=== PATIENT | female | born 1965 | race Caucasian/White ===

== ENCOUNTER 2018-10-17 06:28 | Observation (INO) | payer OTHER, SELFPAY ==
[2018-10-17] VITALS (23 sets, daily range): BP systolic 88–126; BP diastolic 51–102; PULSE 69–108; RESP 13–21; TEMP 36.6–37.4; O2SAT 94–100; BMI 25.7
--- NOTE | 2018-10-17 | PATH_ITS ---
[facility] Accession Number: [id number] . 01 Material submitted: . APPENDIX . 02 Diagnosis: Appendix: Acute appendicitis. MRV/10/19/2018 . 02 Electronically signed: . Sunny Moreno MD, Pathologist NPI- [id number] . 01 Gross description: . Received in formalin, labeled appendix, is an intact appendix (length-4.8 cm, diameter-1.0 cm) with mattson-pink smooth shiny serosa and attached mesoappendix (up to 2.0 cm in depth). The resection margin is received stapled. A portion of the specimen is covered in mattson-white flaky friable exudate. The lumen contains brown solid-soft material. The wall is up to 0.4 cm thick. No nodules, masses or lesions are identified. The resection margin is inked black. Section code: (A1) resection margin en face and two additional serial sections; (A2) one-half of the bivalved tip. ([id number]) /MRV . 02 Pathologist provided ICD-10: K35.80 . 02 CPT . 694072 Performed at: 01 [facility] [address], [place], [place] [id number] MD Rodrigo Davis MD Phone: [phone] Performed at: 02 [facility] [address] [place], [place] [id number] MD Jelly Dailey MD Phone: [phone]
--- NOTE | 2018-10-17 06:55 | ED_ITS ---
HPI - Abdominal Pain <Maurisio Fountain DO - Last Filed: 10/17/18 07:50> General Chief Complaint: Abdominal Pain Stated Complaint: Stomach Pain lower right front passed out twice Time Seen by Provider: 10/17/18 06:30 Source: patient Mode of arrival: ambulatory Limitations: no limitations History of Present Illness HPI narrative: 53-year-old female nonsmoker without any significant medical his tito presents to the emergency department with her and a chief complaint of 2 syncopal episodes this morning in the bathroom. She was feeling well until last evening she started developing some nausea which over the course of the evening progressed to significant right lower quadrant pain. She went to the restroom and think she was getting off the toilet to grab some toilet paper and her heard a thud. He found her laying on the ground with a contusion on her forehead and the right side of her face. She denies alcohol, street drugs with the use of blood thinners. She is at her baseline mental status. She states her pain is worse with motion and improves with rest. She denies any vaginal bleeding or discharge. Related Data Home Medications Medication Instructions Recorded Confirmed ASPIRIN (Aspirin) #0 08/08/10 Allergies Allergy/AdvReac Type Severity Reaction Status Date / Time azithromycin Allergy Verified 10/17/18 06:45 [From Zithromax Z-Brayden] Review of Systems <Maurisio Fountain DO - Last Filed: 10/17/18 07:50> Constitutional Denies chills, Denies fever(s), Denies lethargy and Denies weakness Eyes Denies change in vision, Denies eye discharge, Denies irritation and Denies loss of vision ENT Ears, Nose, Mouth, and Throat: Denies change in voice, Denies neck pain and Denies sore throat Cardiovascular Denies chest pain, Reports syncope, Denies irregular heart rhythm, Denies lightheadedness, Denies palpitations, Denies dyspnea, Denies dyspnea on exertion and Denies orthopnea Respiratory Denies cough, Denies dyspnea, Denies dyspnea on exertion and Denies wheezing Gastrointestinal Gastrointestinal: Reports abdominal pain, Denies change in bowel habits, Denies diarrhea, Denies nausea and Denies vomiting Genitourinary Denies hematuria, Denies flank pain, Denies urinary incontinence and Denies urin patrizia urgency Musculoskeletal Denies neck pain Integumentary/Breasts Denies pruritus, Denies erythema, Denies rash and Denies wounds Neurologic Denies confusion, Reports syncope, Denies loss of vision and Denies weakness Psychiatric Denies anxiety, Denies confusion, Denies depression, Denies homicidal ideation and Denies suicidal ideation Endocrine Denies palpitations Hematologic/Lymphatic Denies easy bruising Allergic/Immunologic Denies wheezing PFSH <Maurisio Fountain DO - Last Filed: 10/17/18 07:50> Social History Smoking Status: Never smoker Social History Smoking Status: Never smoker Exam <Maurisio Fountain DO - Last Filed: 10/17/18 07:50> Narrative Exam Narrative: GENERAL: 53F appears younger than stated age. This is a well- nourished, well-developed patient, in mild distress. GCS 15 HEAD: Left forehead contusion EYES: Pupils equal round and reactive. Extraocular motions intact. No scleral icterus. No injection or drainage. ENT: Nose without bleeding, purulent drainage or septal hematoma. Throat without erythema, tonsillar hypertrophy or exudate. Uvula midline. Airway patent. NECK: Trachea midline. No JVD or lymphadenopathy. Supple, nontender, no men ingeal signs. CARDIOVASCULAR: Regular rate and rhythm without murmurs, gallops, or rubs. RESPIRATORY: Clear to auscultation. Breath sounds equal bilaterally. No wheezes, rales, or rhonchi. GASTROINTESTINAL: Abdomen soft, tender RLQ, nondistended. No hepato- splenomegaly, or palpable masses. No guarding. EXTREMITIES: No clubbing, cyanosis, or edema. No joint tenderness, effusion, or edema noted. BACK: Nontender without deformity or crepitance. No flank tenderness. NEURO: AOx3. SKIN: No rash or erythema. Initial Vital Signs Initial Vital Signs: Vital Signs Temperature 98.0 F 10/17/18 06:41 Pulse Rate 108 H 10/17/18 06:41 Respiratory Rate 21 10/17/18 06:41 Blood Pressure 123/102 H 10/17/18 06:41 Pulse Oximetry 100 10/17/18 06:41 <Timi Klein DO - Last Filed: 10/17/18 08:37> Initial Vital Signs Initial Vital Signs: Vital Signs Temperature 98.0 F 10/17/18 06:41 Pulse Rate 108 H 10/17/18 06:41 Respiratory Rate 21 10/17/18 06:41 Blood Pressure 123/102 H 10/17/18 06:41 Pulse Oximetry 100 10/17/18 06:41 <DO Trev Ko Last Filed: 10/17/18 08:37> GCS [place] coma scale eye opening: Spontaneous [place] coma scale verbal response: Orientated [place] coma scale motor response: Obey commands [place] coma scale total score: 15 Course <Maurisio Fountain DO - Last Filed: 10/17/18 07:50> Orders Ordered: ED Orders 10/17/18 06:44 Complete Blood Count AUTO DIFF Stat Comprehensive Metabolic Panel Stat Lipase Stat 10/17/18 06:50 EKG-12 Lead Stat 10/17/18 07:39 CT abdomen pelvis w con Stat Piperacillin/Tazobactam/Dextrose (Zosyn) 3.375 gm in 50 mls @ 100 mls/hr IV NOW ONE Stop: 10/17/18 08:45 Last Admin: 10/17/18 08:23 Dose: 100 mls/hr Discontinued Medications Sodium Chloride (Normal Saline 0.9%) 500 mls @ 1,000 mls/hr IV BOLUS ONE Stop: 10/17/18 07:19 Last Admin: 10/17/18 07:25 Dose: Not Given Sodium Chloride (Normal Saline 0.9%) 1,000 mls @ 1,000 mls/hr IV BOLUS ONE Stop: 10/17/18 08:21 Last Admin: 10/17/18 07:24 Dose: 1,000 mls/hr Vital Signs - 8 hr 10/17/18 06:41 10/17/18 08:00 Temperature 98.0 F Pulse Rate 108 H Pulse Rate [Orthostatic Lying] 97 H Pulse Rate [Orthostatic Sitting] 89 Pulse Rate [Orthostatic Standing] 94 H Respiratory Rate 21 Blood Pressure 123/102 H Blood Pressure [Orthostatic Lying] 117/61 Blood Pressure [Orthostatic Sitting] 118/52 L Blood Pressure [Orthostatic Standing] 106/55 L Pulse Oximetry 100 <DO Trev Ko Last Filed: 10/17/18 08:37> Orders Ordered: ED Orders 10/17/18 06:44 Complete Blood Count AUTO DIFF Stat Comprehensive Metabolic Panel Stat Lipase Stat 10/17/18 06:50 EKG-12 Lead Stat 10/17/18 07:39 CT abdomen pelvis w con Stat Piperacillin/Tazobactam/Dextrose (Zosyn) 3.375 gm in 50 mls @ 100 mls/hr IV NOW ONE Stop: 10/17/18 08:45 Last Admin: 10/17/18 08:23 Dose: 100 mls/hr Discontinued Medications Sodium Chloride (Normal Saline 0.9%) 500 mls @ 1,000 mls/hr IV BOLUS ONE Stop: 10/17/18 07:19 Last Admin: 10/17/18 07:25 Dose: Not Given Sodium Chloride (Normal Saline 0.9%) 1,000 mls @ 1,000 mls/hr IV BOLUS ONE Stop: 10/17/18 08:21 Last Admin: 10/17/18 07:24 Dose: 1,000 mls/hr Vital Signs - 8 hr 10/17/18 06:41 10/17/18 08:00 Temperature 98.0 F Pulse Rate 108 H Pulse Rate [Orthostatic Lying] 97 H Pulse Rate [Orthostatic Sitting] 89 Pulse Rate [Orthostatic Standing] 94 H Respiratory Rate 21 Blood Pressure 123/102 H Blood Pressure [Orthostatic Lying] 117/61 Blood Pressure [Orthostatic Sitting] 118/52 L Blood Pressure [Orthostatic Standing] 106/55 L Pulse Oximetry 100 MDM - Abdominal Pain <Maurisio Fountain DO - Last Filed: 10/17/18 07:50> Lab Data Result diagrams: 10/17/18 06:44 10/17/18 06:44 Lab Results 10/17/18 10/17/18 Range/Units 06:44 06:44 WBC 17.4 H (4.5-11.0) X10^3/uL RBC 4.71 (4.0-5.2) X10^6/uL Hgb 14.2 (12.0-16.0) g/dL Hct 43.7 (36-46) % MCV 92.7 (80-100) fL MCH 30.1 (26-34) PG MCHC 32.5 (30-36) % RDW 12.6 (11.6-14.8) % Plt Count 312 (150-400) X10^3/uL Neut % (Auto) 86.2 H (50-75) % Lymph % (Auto) 7.0 L (25-40) % Wil[place] % (Auto) 6.4 (3-14) % Eos % (Auto) 0.2 L (2-4) % Baso % (Auto) 0.2 (0-2) % Neut # (Auto) 06262 H (5002-4872) /uL Lymph # (Auto) 1200 (1312-1330) /uL [place] # (Auto) 1100 H (0-900) /uL Eos # (Auto) 0 (0-450) /uL Baso # (Auto) 0 (0-100) /uL Sodium 137 (137-145) mmol/L Potassium 4.3 (3.4-5.1) mmol/L Chloride 100 (98-107) mmol/L Carbon Dioxide 24 (22-32) mmol/L BUN 18 H (7-17) mg/dL Creatinine 1.00 (0.52-1.04) mg/dL Estimated GFR 57.8 L (>60) mL/min BUN/Creatinine Ratio 18.0 (6-22) Glucose 80 (70-100) mg/dL Calcium 10.2 (8.4-10.2) mg/dL Total Bilirubin 0.8 (0.2-1.3) mg/dL AST 38 H (14-36) IU/L ALT 45 (9-52) IU/L Alkaline Phosphatase 73 (38-126) U/L Total Protein 8.4 H (6.3-8.2) g/dL Albumin 5.0 (3.5-5.0) g/dL Globulin 3.4 (1.7-4.1) g/dL Albumin/Globulin Ratio 1.5 (1.0-2.8) Lipase 101 (23-300) U/L <Timi Klein, DO - Last Filed: 10/17/18 08:37> Lab Data Attestation: I reviewed the patient's lab results. Lab Results 10/17/18 10/17/18 Range/Units 06:44 06:44 WBC 17.4 H (4.5-11.0) X10^3/uL RBC 4.71 (4.0-5.2) X10^6/uL Hgb 14.2 (12.0-16.0) g/dL Hct 43.7 (36-46) % MCV 92.7 (80-100) fL MCH 30.1 (26-34) PG MCHC 32.5 (30-36) % RDW 12.6 (11.6-14.8) % Plt Count 312 (150-400) X10^3/uL Neut % (Auto) 86.2 H (50-75) % Lymph % (Auto) 7.0 L (25-40) % [place] % (Auto) 6.4 (3-14) % Eos % (Auto) 0.2 L (2-4) % Baso % (Auto) 0.2 (0-2) % Neut # (Auto) 05212 H (1943-4325) /uL Lymph # (Auto) 1200 (9524-5855) /uL [place] # (Auto) 1100 H (0-900) /uL Eos # (Auto) 0 (0-450) /uL Baso # (Auto) 0 (0-100) /uL Sodium 137 (137-145) mmol/L Potassium 4.3 (3.4-5.1) mmol/L Chloride 100 (98-107) mmol/L Carbon Dioxide 24 (22-32) mmol/L BUN 18 H (7-17) mg/dL Creatinine 1.00 (0.52-1.04) mg/dL Estimated GFR 57.8 L (>60) mL/min BUN/Creatinine Ratio 18.0 (6-22) Glucose 80 (70-100) mg/dL Calcium 10.2 (8.4-10.2) mg/dL Total Bilirubin 0.8 (0.2-1.3) mg/dL AST 38 H (14-36) IU/L ALT 45 (9-52) IU/L Alkaline Phosphatase 73 (38-126) U/L Total Protein 8.4 H (6.3-8.2) g/dL Albumin 5.0 (3.5-5.0) g/dL Globulin 3.4 (1.7-4.1) g/dL Albumin/Globulin Ratio 1.5 (1.0-2.8) Lipase 101 (23-300) U/L Imaging Data CT scan - abdomen: Radiologist's impression: [address] [address] [address] Scan Report Signed Patient: Susanna Christopher [facility]#: [id number] : 1965Acct:[id number] Age/Sex: 53 / FDate of Service: 10/17/18 Loc: ED Accession Number: [id number] Procedure: CT abdomen pelvis w con Ordering Provider: Timi Klein D.O. PROCEDURE: CT ABDOMEN PELVIS W CON INDICATIONS: Right-sided abdominal pain TECHNIQUE: After the administration of intravenous contrast, 5 mm thick sections acquired from the diaphragm to the symphysis. 5 mm coronal and sagittal reformats were acquired. For radiation dose reduction, the following was used: automated exposure control, adjustment of mA and/or kV according to patient size. COMPARISON: None. FINDINGS: Image quality: Excellent. ABDOMEN: Lung bases: Lung bases are clear. Heart size is normal. There is a small hiat al hernia. Solid organs: Liver is normal in size and enhancement. Gallbladder is normal. Biliary system is non dilated. Pancreas enhances normally. Spleen is normal in size and enhancement. No adrenal nodules. Kidneys demonstrate normal size and enhancement, without hydronephrosis. Peritoneum and bowel: Appendix is enlarged measuring 17 mm in diameter. There is mild appendiceal wall thickening and increased enhancement. Mild appendiceal fat stranding is present. The CT findings are consistent with acute appendicitis. There is a trace amount of free fluid in the right paracolic gutter. No organized collections to suggest appendiceal abscess. No free air. There are numerous colonic diverticula in sigmoid colon. Nodes and vessels: No retroperitoneal or mesenteric adenopathy by size criteria. Aorta and inferior vena cava are normal in size. Miscellaneous: No ventral hernias. There is a 1.5 x 2.2 cm superficial soft tissue nodule in the upper anterior abdominal wall just right of the midline, most likely a sebaceous cyst. PELVIS: Genitourinary: Bladder wall thickness is normal. Uterus and ovaries unremarkable. No pathological fluid in the cul-de-sac. Miscellaneous: No inguinal hernias or adenopathy. Bones: No suspicious bony lesions. No vertebral body compression fractures. IMPRESSION: 1. The CT findings are consistent with acute appendicitis. No evidence for appendiceal perforation or abscess. 2. Diverticulosis without acute diverticulitis. 3. Small hiatal hernia. 4. A 1.5 x 2.2 cm superficial soft tissue nodule in the upper anterior abdominal wall just right of the midline is most likely a sebaceous cyst. If clinically indicated, ultrasound may be performed for further evaluation. The result was discussed to Dr. Klein on 10/17/2017 at 0803 hours Dictated by: Candelaria Rodriguez M.D. on 10/17/2018 at 7:55 Approved by: Candelaria Rodriguez M.D. on 10/17/2018 at 8:06 MDM Narrative Medical decision making narrative: 1925 received turned over from Dr. Fountain who initially evaluated the patient. I performed my own independent history and physical exam. Reviewed the patient's lab report. On my report patient complains of right lower quadrant abdominal pain. She states that her symptoms started last evening with just not feeling very well. Sounds like she did have a syncopal episode this morning after standing from urinating. She has not vomited but has had quite a bit of nausea. Patient is concerned because she has a ?family history ?of aneurysms. Appears to be abdominal aortic aneurysms. She has never been evaluated for these. Her EKG is unremarkable. She does have an elevated white blood cell count with a left shift. This could potentially be from an infection verses stress response/demargination. She does have bruising on her face. Low suspicion for facial bone fractures after my exam. Patient currently is alert and oriented x3 and has a GCS of 15. Is neurologically intact. Patient does not meet any criteria from the [place] syncope Rule. Will obtain a CT scan of the abdomen pelvis to evaluate for intra-abdominal pathology. Patient is given fluids. Will continue to evaluate. CT scan shows evidence for acute appendicitis. This does explain her abdominal pain and also her elevated white blood cell count. I do not feel the patient needs a CT scan of her head. I did discuss the diagnosis with the patient and the family at bedside. Dr. Alva with General surgery was informed and will come see the patient here in the emergency department. Discharge Plan Departure Patient Disposition: Admitted as Observation Clinical Impression: Acute appendicitis Qualifiers: Acute appendicitis type: unspecified acute appendicitis type Qualified Code(s): K35.80 - Unspecified acute appendicitis Syncope Qualifiers: Syncope type: unspecified Qualified Code(s): R55 - Syncope and collapse
[2018-10-17 06:57] LABS: Add Manual Diff / Slide Review NO; Basophils Absolute Auto 0 /uL (0-100); Basophils Percent Auto 0.2 % (0-2); Eosinophils Absolute Auto 0 /uL (0-450); Eosinophils Percent Auto 0.2 % (2-4); Hematocrit 43.7 % (36-46); Hemoglobin 14.2 g/dL (12.0-16.0); Lymphocytes Absolute Auto 1200 /uL (1100-4500); Mean Corpuscular HGB Conc 32.5 % (30-36); Mean Corpuscular Hemoglobin 30.1 PG (26-34); Mean Corpuscular Volume 92.7 fL (80-100); Monocytes Absolute Auto 1100 /uL (0-900); Monocytes Percent Auto 6.4 % (3-14); Neutrophils Absolute Auto 15000 /uL (1500-7000); Neutrophils Percent Auto 86.2 % (50-75); Platelet Count 312 X10^3/uL (150-400); Red Blood Cell Count 4.71 X10^6/uL (4.0-5.2); Red Cell Distribution Width 12.6 % (11.6-14.8); White Blood Cell Count 17.4 X10^3/uL (4.5-11.0)
[2018-10-17 07:03] LABS: Alanine Aminotransferase 45 IU/L (9-52); Albumin Globulin Ratio 1.5 (1.0-2.8); Alkaline Phosphatase 73 U/L (38-126); Aspartate Aminotransferase 38 IU/L (14-36); Bilirubin Total 0.8 mg/dL (0.2-1.3); Blood Urea Nitrogen 18 mg/dL (7-17); Calcium 10.2 mg/dL (8.4-10.2); Carbon Dioxide 24 mmol/L (22-32); Chloride 100 mmol/L (98-107); Estimated Glomerular Filt Rate 57.8 mL/min (>60); Globulin 3.4 g/dL (1.7-4.1); Glucose 80 mg/dL (70-100); HEMOLYSIS < 15 (0-50); Lipase 101 U/L (23-300); Potassium 4.3 mmol/L (3.4-5.1); Sodium 137 mmol/L (137-145); Total Protein 8.4 g/dL (6.3-8.2)
[2018-10-17] MEDS: SODIUM CHLORIDE 0.9% 1,000 ML 1000 ML IV (07:24)
--- NOTE | 2018-10-17 07:39 | DI.CT.S_ITS ---
PROCEDURE: CT ABDOMEN PELVIS W CON INDICATIONS: Right-sided abdominal pain TECHNIQUE: After the administration of intravenous contrast, 5 mm thick sections acquired from the diaphragm to the symphysis. 5 mm coronal and sagittal reformats were acquired. For radiation dose reduction, the following was used: automated exposure control, adjustment of mA and/or kV according to patient size. COMPARISON: None. FINDINGS: Image quality: Excellent. ABDOMEN: Lung bases: Lung bases are clear. Heart size is normal. There is a small hiatal hernia. Solid organs: Liver is normal in size and enhancement. Gallbladder is normal. Biliary system is non dilated. Pancreas enhances normally. Spleen is normal in size and enhancement. No adrenal nodules. Kidneys demonstrate normal size and enhancement, without hydronephrosis. Peritoneum and bowel: Appendix is enlarged measuring 17 mm in diameter. There is mild appendiceal wall thickening and increased enhancement. Mild appendiceal fat stranding is present. The CT findings are consistent with acute appendicitis. There is a trace amount of free fluid in the right paracolic gutter. No organized collections to suggest appendiceal abscess. No free air. There are numerous colonic diverticula in sigmoid colon. Nodes and vessels: No retroperitoneal or mesenteric adenopathy by size criteria. Aorta and inferior vena cava are normal in size. Miscellaneous: No ventral hernias. There is a 1.5 x 2.2 cm superficial soft tissue nodule in the upper anterior abdominal wall just right of the midline, most likely a sebaceous cyst. PELVIS: Genitourinary: Bladder wall thickness is normal. Uterus and ovaries unremarkable. No pathological fluid in the cul-de-sac. Miscellaneous: No inguinal hernias or adenopathy. Bones: No suspicious bony lesions. No vertebral body compression fractures. IMPRESSION: 1. The CT findings are consistent with acute appendicitis. No evidence for appendiceal perforation or abscess. 2. Diverticulosis without acute diverticulitis. 3. Small hiatal hernia. 4. A 1.5 x 2.2 cm superficial soft tissue nodule in the upper anterior abdominal wall just right of the midline is most likely a sebaceous cyst. If clinically indicated, ultrasound may be performed for further evaluation. The result was discussed to Dr. Klein on 10/17/2017 at 0803 hours Dictated by: Candelaria Rodriguez M.D. on 10/17/2018 at 7:55 Approved by: Candelaria Rodriguez M.D. on 10/17/2018 at 8:06
[2018-10-17] MEDS: PIPERACILLIN-TAZO 3.375 GM/50 ML FROZ.PIGGY IV (08:23)
[2018-10-17] MEDS: SODIUM CHLORIDE 0.9% 1,000 ML 125 ML IV (09:53)
[2018-10-17] MEDS: LACTATED RINGERS 1,000 ML 42 ML IV ×2 (10:52→13:15)
--- NOTE | 2018-10-17 11:39 | PM.HP.1 ---
History of Present Illness Date Patient Seen: 10/17/18 Time Patient Seen: 11:39 Chief complaint: Stomach Pain lower right front passed out twice Narrative: 53-year-old otherwise healthy female who presents to the emergency department earlier this morning with acute onset of abdominal pain shortly after midnight today. She was in her usual state of health last evening. She ate a regular meal at approximately 4:00 a.m. last night. She denies any nausea or vomiting thereafter. However, she awoke with abdominal pain that she describes initially as diffuse. 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 Pain was unrelenting and eventually localized to the right lower quadrant region where it now is quite severe. Pain does not radiate to the back or shoulder. Denies any dysuria or hematuria. Her last bowel movement was yesterday. Denies any fever or chills. No chest pain or shortness of breath. She is currently anorexic and has not eaten or drank anything at all today. Following urination this morning on the way to the emergency department she became lightheaded and dizzy with an associated syncopal episode. She has undergone extensive evaluation here in the emergency department including EKG with no acute findings. She has absolutely no history of any arrhythmia or other cardiac issues. Patient History Medical History History of bursitis (Acute) No significant past medical history (Acute) Surgical History History of section (Acute) Social History household members: spouse Smoking Status: Never smoker Family & Social History Social History: household members spouse Prior Living Arrangements House Safety & Behavioral: Feels Safe in Current Yes Environment Tobacco & Substance use: Smoking Status Never smoker alcohol intake frequency 0-2 drinks per day Substance Use Type does not use Meds Home Medications Medication Instructions Recorded Confirmed Type ASPIRIN (Aspirin) #0 08/08/10 History Allergies Allergy/AdvReac Type Severity Reaction Status Date / Time azithromycin Allergy Verified 10/17/18 06:45 [From Zithromax Z-Brayden] Review of Systems Review of Systems All systems reviewed & are unremarkable except as noted in HPI and below Exam Vital Signs (past 8 hours): - 10/17/18 06:41 10/17/18 08:00 10/17/18 10:42 Temperature 98.0 F 99.3 F Pulse Rate 108 H 100 H Pulse Rate [Orthostatic Lying] 97 H Pulse Rate [Orthostatic Sitting] 89 Pulse Rate [Orthostatic Standing] 94 H Respiratory Rate 21 16 Blood Pressure 123/102 H 126/70 Blood Pressure [Orthostatic Lying] 117/61 Blood Pressure [Orthostatic Sitting] 118/52 L Blood Pressure [Orthostatic Standing] 106/55 L Pulse Oximetry 100 99 Oxygen Delivery Method Room Air Narrative Exam Narrative: Well-nourished well-developed female in no acute distress lying comfortably on the gurney. Alert oriented x3. Family is at the bedside for my entire visit. Sclera nonicteric Regular rate and rhythm. No wheezes Abdomen is soft and nondistended. However, she is focally tender over McBurney's point with obvious guarding involuntarily. She also has a positive Rovsing sign. No masses. Extremities show no clubbing or cyanosis Objective Labs Result Diagrams: 10/17/18 06:44 10/17/18 06:44 Labs: Laboratory Results - last 24 hr 10/17/18 10/17/18 06:44 06:44 WBC 17.4 H RBC 4.71 Hgb 14.2 Hct 43.7 MCV 92.7 MCH 30.1 MCHC 32.5 RDW 12.6 Plt Count 312 Neut % (Auto) 86.2 H Lymph % (Auto) 7.0 L [place] % (Auto) 6.4 Eos % (Auto) 0.2 L Baso % (Auto) 0.2 Neut # (Auto) 64055 H Lymph # (Auto) 1200 [place] # (Auto) 1100 H Eos # (Auto) 0 Baso # (Auto) 0 Sodium 137 Potassium 4.3 Chloride 100 Carbon Dioxide 24 BUN 18 H Creatinine 1.00 Estimated GFR 57.8 L BUN/Creatinine Ratio 18.0 Glucose 80 Calcium 10.2 Total Bilirubin 0.8 AST 38 H ALT 45 Alkaline Phosphatase 73 Total Protein 8.4 H Albumin 5.0 Globulin 3.4 Albumin/Globulin Ratio 1.5 Lipase 101 Urine test in the emergency department is negative I have personally reviewed her CT scan of the abdomen and pelvis done in the emergency department prior to my consultation. No free air. No significant free fluid. Solid organs are normal. No significant lymphadenopathy. No pelvic masses. She does have evidence of inflammation within enlarged appendix in the right lower quadrant consistent with appendicitis. No evidence of abscess or rupture. Assessment & Plan Assessment & Plan narrative: 53-year-old female with acute appendicitis. I discussed my impression findings with the patient and her family at length. I recommend urgent laparoscopic appendectomy today. Technical details of the procedure were discussed. Risks, benefits, alternatives were explained. Alternative for medical management with intravenous antibiotics only is not recommended. I reviewed this with her and its associated failure rate necessitating eventual surgery in a significant portion of patients. Furthermore, she is otherwise healthy and is an excellent surgical candidate for appendectomy. Risks including but not limited to anesthesia, bleeding, infection, pain, scars, need to convert to open procedure, need for drains, appendiceal stump leak, bladder injury, colon injury, small bowel injury, ureter injury, liver injury, and need for further major surgery were discussed in detail. Small possibility of other pathology such as ovarian cysts or other issues was also discussed, but her examination and findings are almost certainly consistent with appendicitis. All questions were answered to her satisfaction, and she voiced understanding. Consent was placed on the chart. We will proceed as above. Orders written.
--- NOTE | 2018-10-17 11:45 | P.HP_ITS ---
History of Present Illness Date Patient Seen: 10/17/18 Time Patient Seen: 11:39 Chief complaint: Stomach Pain lower right front passed out twice Narrative: 53-year-old otherwise healthy female who presents to the emergency department earlier this morning with acute onset of abdominal pain shortly after midnight today. She was in her usual state of health last evening. She ate a regular meal at approximately 4:00 a.m. last night. She denies any nausea or vomiting thereafter. However, she awoke with abdominal pain that she describes initially as diffuse. 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 Pain was unrelenting and eventually localized to the right lower quadrant region where it now is quite severe. Pain does not radiate to the back or shoulder. Denies any dysuria or hematuria. Her last bowel movement was yesterday. Denies any fever or chills. No chest pain or shortness of breath. She is currently anorexic and has not eaten or drank anything at all today. Following urination this morning on the way to the emergency department she became lightheaded and dizzy with an associated syncopal episode. She has undergone extensive evaluation here in the emergency department including EKG with no acute findings. She has absolutely no history of any arrhythmia or other cardiac issues. Patient History Medical History History of bursitis (Acute) No significant past medical history (Acute) Surgical History History of section (Acute) Social History household members: spouse Smoking Status: Never smoker Family & Social History Social History: household members spouse Prior Living Arrangements House Safety & Behavioral: Feels Safe in Current Yes Environment Tobacco & Substance use: Smoking Status Never smoker alcohol intake frequency 0-2 drinks per day Substance Use Type does not use Meds Home Medications Medication Instructions Recorded Confirmed Type ASPIRIN (Aspirin) #0 08/08/10 History Allergies Allergy/AdvReac Type Severity Reaction Status Date / Time azithromycin Allergy Verified 10/17/18 06:45 [From Zithromax Z-Brayden] Review of Systems Review of Systems All systems reviewed & are unremarkable except as noted in HPI and below Exam Vital Signs (past 8 hours): - 10/17/18 06:41 10/17/18 08:00 10/17/18 10:42 Temperature 98.0 F 99.3 F Pulse Rate 108 H 100 H Pulse Rate [Orthostatic Lying] 97 H Pulse Rate [Orthostatic Sitting] 89 Pulse Rate [Orthostatic Standing] 94 H Respiratory Rate 21 16 Blood Pressure 123/102 H 126/70 Blood Pressure [Orthostatic Lying] 117/61 Blood Pressure [Orthostatic Sitting] 118/52 L Blood Pressure [Orthostatic Standing] 106/55 L Pulse Oximetry 100 99 Oxygen Delivery Method Room Air Narrative Exam Narrative: Well-nourished well-developed female in no acute distress lying comfortably on the gurney. Alert oriented x3. Family is at the bedside for my entire visit. Sclera nonicteric Regular rate and rhythm. No wheezes Abdomen is soft and nondistended. However, she is focally tender over McBurney's point with obvious guarding involuntarily. She also has a positive Rovsing sign. No masses. Extremities show no clubbing or cyanosis Objective Labs Result Diagrams: 10/17/18 06:44 10/17/18 06:44 Labs: Laboratory Results - last 24 hr 10/17/18 10/17/18 06:44 06:44 WBC 17.4 H RBC 4.71 Hgb 14.2 Hct 43.7 MCV 92.7 MCH 30.1 MCHC 32.5 RDW 12.6 Plt Count 312 Neut % (Auto) 86.2 H Lymph % (Auto) 7.0 L [place] % (Auto) 6.4 Eos % (Auto) 0.2 L Baso % (Auto) 0.2 Neut # (Auto) 17238 H Lymph # (Auto) 1200 [place] # (Auto) 1100 H Eos # (Auto) 0 Baso # (Auto) 0 Sodium 137 Potassium 4.3 Chloride 100 Carbon Dioxide 24 BUN 18 H Creatinine 1.00 Estimated GFR 57.8 L BUN/Creatinine Ratio 18.0 Glucose 80 Calcium 10.2 Total Bilirubin 0.8 AST 38 H ALT 45 Alkaline Phosphatase 73 Total Protein 8.4 H Albumin 5.0 Globulin 3.4 Albumin/Globulin Ratio 1.5 Lipase 101 Urine test in the emergency department is negative I have personally reviewed her CT scan of the abdomen and pelvis done in the emergency department prior to my consultation. No free air. No significant free fluid. Solid organs are normal. No significant lymphadenopathy. No pelvic masses. She does have evidence of inflammation within enlarged appendix in the right lower quadrant consistent with appendicitis. No evidence of abscess or rupture. Assessment & Plan Assessment & Plan narrative: 53-year-old female with acute appendicitis. I discussed my impression findings with the patient and her family at length. I recommend urgent laparoscopic appendectomy today. Technical details of the procedure were discussed. Risks, benefits, alternatives were explained. Alternative for medical management with intravenous antibiotics only is not recommended. I reviewed this with her and its associated failure rate necessita ting eventual surgery in a significant portion of patients. Furthermore, she is otherwise healthy and is an excellent surgical candidate for appendectomy. Risks including but not limited to anesthesia, bleeding, infection, pain, scars, need to convert to open procedure, need for drains, appendiceal stump leak, bladder injury, colon injury, small bowel injury, ureter injury, liver injury, and need for further major surgery were discussed in detail. Small possibility of other pathology such as ovarian cysts or other issues was also discussed, but her examination and findings are almost certainly consistent with appendicitis. All questions were answered to her satisfaction, and she voiced understanding. Consent was placed on the chart. We will proceed as above. Orders written.
--- NOTE | 2018-10-17 11:45 | PM.PREOP ---
Pre-operative Note Interval Note History & Physical reviewed/Exam performed by Physician: Yes Changes to H&P: No H&P completed within 30 days and has changed as indicated here:: Patient seen and examined this morning. History physical examination is on the chart. No changes obviously in the last hour. Proceed with urgent laparoscopic appendectomy today as planned.
[2018-10-17] MEDS: CEFOTETAN 2 GM/50 ML PIGGYBACK IV (11:59)
--- NOTE | 2018-10-17 12:36 | SUR.OPER ---
Supine on padded OR bed, head on pillow, safety belt at thigh, left arm padded and tucked at side. Right arm secured on padded arm oard <90 degrees abduction. Legs uncrossed. Padded footboard in place. Tape over blanket to secure lower legs.
[2018-10-17] MEDS: LIDOCAINE 1% W/EPI INJ 20 ML INJ (12:40)
[2018-10-17] MEDS: BUPIVACAINE 0.5% (PF) VIAL 30 ML INJ (12:41)
[2018-10-17] MEDS: fentaNYL 100 MCG/2 ML INJ 50 MCG IV ×2 (13:40→13:50)
--- NOTE | 2018-10-17 13:43 | PM.OP.1 ---
Operative Date/Time/Diagnoses Date of procedure: 10/17/18 Time of procedure: 13:43 Pre-op diagnosis: Acute appendicitis Post-op diagnosis: other (Acute suppurative appendicitis without rupture or abscess) Procedure & Clinicians Procedure: Laparoscopic appendectomy Same procedure as scheduled: Yes Indications: 53-year-old otherwise healthy female who presented emergency department today with progressive severe right lower quadrant abdominal pain. Examination and evaluation were consistent with appendicitis. Laparoscopic appendectomy was recommended. Surgeon: Marc Alva Click Yes if Unassisted: Yes Anesthesia Type: General Operative Notes Findings: 1. Acutely inflamed suppurative appendicitis with fibrinopurulent exudate but no evidence of rupture or abscess 2. Normal appearing cecum and stomach within the limits of laparoscopic visualization 3. Grossly normal gallbladder and liver and small bowel within the limits of laparoscopic visualization 4. Few adhesions between the omentum and the anterior abdominal wall at site of previous section in the left lower quadrant Closure Type: primary Specimen(s): other (Appendix) Prosthetic devices, grafts, tissues, transplants, or devices: None Estimated Blood Loss (mL): 10 Blood products transfused: none Procedure in detail: After obtaining informed consent the patient was brought to the operating room placed supine on the table. After satisfactory induction of anesthesia a Lima catheter was inserted to decompress the urinary bladder. Abdomen was prepped and draped in usual sterile fashion. SCOAP time out was performed per standard protocol. A 1:1 mixture 1% lidocaine with 1:100,000 epinephrine and 0.5% plain Marcaine was injected in the skin and subcutaneous tissue at the superior aspect of the umbilicus for postoperative analgesia. In a vertical midline incision was created with 11 scalpel blade at the superior aspect of the umbilicus for a distance of approximately 2 cm. Blunt dissection revealed the rectus fascia which was divided in the midline with 11 scalpel blade. Edges of the fascia were secured with Hayley clamps bilaterally and elevated into the operative field. Two individual interrupted 0 Vicryl suture were placed superiorly and inferiorly to secure the fascia. Under direct visualization peritoneum was entered with Matilde clamps and a blunt 12 mm Grider trocar was inserted. Carbon dioxide pneumoperitoneum was created and the abdomen was visually explored with a 5 mm 30 degree laparoscope. Findings are as above. Under direct laparoscopic visualization 2 individual 5 mm trocars were placed in the left lower quadrant after achieving local anesthesia. Adhesions between the omentum and anterior abdominal wall at her previous section scar were taken down sharply with laparoscopic scissors. Hemostasis was achieved on the abdominal wall with monopolar cautery. Hemostasis was verified. Appendix was readily identified and findings are as above. Jackie graspers were used to secure the appendix elevated into the operative field. A [place] dissector was employed to create an avascular window between the mesoappendix and the base of the appendix. Base of the appendix was noted to be soft. Single application of the Endo-GERSON 45 mm stapler using a vascular load was used to divide the mesoappendix. Great care was taken to avoid injury to adjacent structures such as the terminal ileum, cecum, and retroperitoneal structures. Hemostasis was verified. A 2nd application of the stapler using a soft tissue load was used to divide the appendix at its junction with the cecum. Specimen was placed in an endo-pouch and retrieved through the umbilical incision then sent for permanent section. Right lower quadrant was irrigated with copious amounts of sterile saline solution and noted to be hemostatic. Staple lines were meticulously examined and noted to be completely intact without evidence of hemorrhage or leakage. Instruments and trocars were then removed and the carbon dioxide evacuated. Fascia at the umbilical site was closed with the previously placed 0 Vicryl suture. Skin at all 3 incisions was then closed in a running subcuticular fashion with 4 0 Monocryl suture. Dermal adhesive was applied. Lima catheter was removed. Anesthesia was reversed and the patient extubated in the operating room. She was taken recovery stable condition. Complications: none Condition: stable Disposition: PACU Plan for aftercare: 1. Admit to regular surgical floor for overnight observation and ongoing convalescence
[2018-10-17] MEDS: HYDROMORPHONE 2 MG INJ 0.25 MG IV ×2 (14:10→14:15)
[2018-10-17] MEDS: SODIUM CHLORIDE 0.9% 1,000 ML 84 ML IV (15:15)
[2018-10-17] MEDS: PANTOPRAZOLE 40 MG VIAL IV (16:13)
[2018-10-17] MEDS: ONDANSETRON 4 MG/2 ML INJ IV (16:13)
--- NOTE | 2018-10-17 17:00 | PC.NURSE ---
Pt took a nap. States her dizziness is better and she feels more awake. Pt denies nausea now. Pt declines pain medication and states her pain is well controlled at 3/10.
[2018-10-17] MEDS: SIMETHICONE 80 MG TABLET PO (18:53)
--- NOTE | 2018-10-17 20:07 | PC.NURSE ---
Patient ambulated in the dept for approx 10 mins. gait stable. Patient requesting pain meds before she goes to bed. She is worried about the bloating, we discussed its common after surgery it will go away. Pateint was already given Simethicone. UOP better than was will continue to monitor
[2018-10-17] MEDS: OXYCODONE IR 5 MG TABLET PO (20:49)
--- NOTE | 2018-10-17 21:17 | PC.NURSE ---
Patient resting in room with eyes closed. Resp reg and even
--- NOTE | 2018-10-18 01:25 | PC.NURSE ---
Patient resting quietly and resp reg and even
--- NOTE | 2018-10-18 01:46 | PC.NURSE ---
Patient woke up ambulated to the bathroom, then called for more water. Pain 3. She states she is doing well, and sleeping well.
[2018-10-18 03:35] VITALS: BP 80/50; PULSE 84; RESP 16; TEMP 37.1
[2018-10-18] MEDS: OXYCODONE IR 5 MG TABLET PO (03:40)
--- NOTE | 2018-10-18 06:11 | PC.NURSE ---
Patient continues to sleep quietly. Room dark. Patient snoring softly. Resp even and reg
[2018-10-18 07:38] VITALS: BP 94/59; PULSE 77; RESP 16; TEMP 37.2; O2SAT 97
--- NOTE | 2018-10-18 08:08 | PM.DS.1 ---
History of Present Illness Date Patient Seen: 10/18/18 Time Patient Seen: 08:08 Chief complaint: Stomach Pain lower right front passed out twice Narrative: 53-year-old otherwise healthy female who presents to the emergency department earlier this morning with acute onset of abdominal pain shortly after midnight today. She was in her usual state of health last evening. She ate a regular meal at approximately 4:00 a.m. last night. She denies any nausea or vomiting thereafter. However, she awoke with abdominal pain that she describes initially as diffuse. 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 Pain was unrelenting and eventually localized to the right lower quadrant region where it now is quite severe. Pain does not radiate to the back or shoulder. Denies any dysuria or hematuria. Her last bowel movement was yesterday. Denies any fever or chills. No chest pain or shortness of breath. She is currently anorexic and has not eaten or drank anything at all today. Following urination this morning on the way to the emergency department she became lightheaded and dizzy with an associated syncopal episode. She has undergone extensive evaluation here in the emergency department including EKG with no acute findings. She has absolutely no history of any arrhythmia or other cardiac issues. Discharge Providers Date of admission: 10/17/18 09:57 Discharge Date: 10/18/18 Discharge provider: Marc Alva MD Summary Discharge Diagnosis: 1. Acute suppurative appendicitis without perforation or abscess 2. Laparoscopic appendectomy October 17, 2018 3. History of section 4. History of syncope, resolved Hospital Course: Patient presented emergency department with progressive right lower quadrant abdominal pain. Examination and evaluation were consistent with acute appendicitis. She was taken urgently for the above operation which he tolerated well. Postoperatively she was admitted to the regular floor where she remained afebrile and hemodynamically stable. She is tolerating a diet by postoperative day 1. Pain is well controlled with oral agents. She is ambulating without difficulty. She has had spontaneous return of bowel bladder function. Incisions are healing nicely without evidence of infection or other complications. She is therefore discharged home on postoperative day 1. She will follow up in the surgery clinic in 2 weeks. However, she understands to call or return sooner if she has any fever, chills, nausea, vomiting, progressive pain, wound drainage, or inability to tolerate a diet. All questions were answered to her satisfaction, and she voiced understanding. Status at Discharge Cognitive/behavioral status at discharge: Alert, oriented x3 Functional status at discharge: independent ambulation Overall status at discharge: patient is progressing back to baseline Time Spent with Patient Less than 30 minutes Exam Vital Signs (past 8 hours): - 10/18/18 03:35 10/18/18 07:38 Temperature 98.8 F 99.0 F Pulse Rate 84 77 Respiratory Rate 16 16 Blood Pressure 80/50 L 94/59 L Pulse Oximetry 97 Oxygen Delivery Method Room Air Oxygen Flow Rate 2 Narrative Exam Narrative: Well-nourished well-developed female in no acute distress. Lying comfortably in bed this morning at the time my visit. Alert oriented x3 Sclera nonicteric Chest clear to auscultation bilaterally with regular rate and rhythm. No wheezes. Abdomen soft, nondistended, appropriately tender around the incisions. No guarding or rebound. She is mildly tender in the right lower quadrant near McBurney's point but certainly with no involuntary guarding such as was present at the time of admission. No significant ecchymoses or erythema of the incisions. Extremities show no clubbing or cyanosis Objective Labs Result Diagrams: 10/17/18 06:44 10/17/18 06:44 Discharge Plan Discharge Plan Patient Disposition: Home Discharge Med Rec/Prescriptions Prescriptions: New oxycodone 5 mg Tablet 5 mg PO Q4HR PRN (Reason: Pain, Moderate (4-6)) Qty: 30 RF: 0 sennosides [Senokot] 8.6 mg tablet 8.6 mg PO BEDTIME Qty: 10 RF: 1 docusate sodium [Colace] 100 mg capsule 100 mg PO BID Qty: 14 RF: 1 Continued ASPIRIN (Aspirin) Qty: 0 RF: 0 Follow up/Referrals: Marc Alva MD [Physician] - 2 Weeks Provider Discharge Instructions Diet: Diet as Tolerated Activity: No driving while taking opioid pain medication No lifting more than 20 lb for 2 weeks May walk as much as desired May climb stairs May ride in vehicle Other treatments: May shower beginning October 18, 2018 Skin/Wound/Dressing Care Report to your healthcare provider any signs of infection, such as:: chills, fever, night sweats, increased pain, unusual drainage and unusual redness Dressing: No dressings necessary Other wound treatment: Expect some mild bruising and swelling around the incisions Visit Report/Discharge Packet Instructions: DI for Laparoscopy Discharge Data Attending Provider: Marc Alva Admit Date/Time: 10/17/18 09:57 Quality VTE Deep Vein Thrombosis/Pulmonary Embolism Present on Admission: No
--- NOTE | 2018-10-18 15:06 | CM.IDA ---
Discharge Planning/Care Management CM Discharge Assessment Start: 10/18/18 15:03 Freq: Status: Discharge Protocol: Document 10/18/18 15:03 DEO (Rec: 10/18/18 15:06 DEO [id number]) Discharge Planning Assessment Assigned Cleaning Attendant ANTONIA Bennett DPOA/Assigned Designee Name Fab Dee, spouse Contact Information [phone] Advance Directives? Yes History Provided By Patient Medical Record Prior Living Arrangements House Household Members spouse Type of transporation used prior to Drives own vehicle admit Independent with ADL's Yes Is patient alert and oriented? Yes Barriers to Discharge No Comment Pt POD#1 from laparoscopic appendectomy. Payer: Noel ERAZO. Reviewed chart. Pt has been DC today by Dr Alva w/ vonnie f /u. Pt ambulating indp in hallway and plans to DC home w / supportive spouse. No barriers to safe return home. ANTONIA Israel Discharge Plan Home Transportation Arrangement Family Referrals Initiated None needed Review Status In Process
== END 2018-10-18 10:17 | disposition home or self-care (01) ==
LOC: ED 08:05 → AC 10:06 → LABOR 10-18 06:38 → AC 10-18 15:35
PROVIDERS: Emergency Medicine; Admitting Provider Surgery; Emergency Provider Emergency Medicine; Visit Provider Surgery
PROC: 0DTJ4ZZ Resection of Appendix, Percutaneous Endoscopic Approach (ICD-10-PCS; CPT 44970; principal; 2018-10-17 11:15)
DX: K35.80 Unspecified acute appendicitis (principal); R10.31 Right lower quadrant pain; R55 Syncope and collapse; K66.0 Peritoneal adhesions (postprocedural) (postinfection)
CPT/HCPCS: 44970; 36591; 74177; 80053; 81003; 83690; 85025; 93005; 96361; 96365; 99220; 99283; 99285; G0378; C9113; J1170; J2405; J2543; J3010; Q9967

== ENCOUNTER → 2018-11-21 11:08 | Outpatient (CLI) | payer OTHER, SELFPAY ==
[2018-10-17 15:00] VITALS: BMI 25.7
--- NOTE | 2018-11-21 | DI.US.S_ITS ---
PROCEDURE: US ABD AORTA ANEURYSM SCREEN INDICATIONS: Encounter for screening for cardiovascular TECHNIQUE: Real time scanning was performed of the aorta and iliac arteries, with image documentation. COMPARISON: [facility], , ABD AORTA ANEURYSM SCREENING, 10/31/2008, 14:34. FINDINGS: Aorta: Proximal aortic diameter measures 2.5 cm. Mid-aorta measures 1.9 cm. Distal aortic diameter is 1.7 cm. Iliac arteries: Right common iliac artery measures 0.9 cm. Left common iliac artery measures 1.0 cm. IMPRESSION: No aneurysm found. Normal caliber of the aorta and iliac arteries. Dictated by: Madi Aguilar M.D. on 11/21/2018 at 13:26 Approved by: Madi Aguilar M.D. on 11/21/2018 at 13:27
== END ==
PROVIDERS: PCP Nurse Practitioner Family; Visit Provider Nurse Practitioner Family
DX: Z13.6 Encounter for screening for cardiovascular disorders (principal)
CPT/HCPCS: 76706

== ENCOUNTER 2020-01-19 00:06 | Emergency (ER) | payer OTHER, SELFPAY ==
[2018-10-17 15:00] VITALS: BMI 25.7
[2020-01-19 00:14] VITALS: BP 140/86; PULSE 92; RESP 22; TEMP 36.6; O2SAT 99; BMI 25.4
--- NOTE | 2020-01-19 00:19 | PC.NURSE ---
PT states started a new OTC diuretic today unaware of brand name that maybe contributing to her symptoms experienced earlier, pt denies CP at present states she feels SOB pt 02 sat 97% on RA, speaking in full sentences appears anxious. Dr wisdom.
--- NOTE | 2020-01-19 00:21 | DI.RAD.S_ITS ---
PROCEDURE: XR CHEST 1V INDICATIONS: Shortness of breath, palpitations TECHNIQUE: One view of the chest was acquired. COMPARISON: None. FINDINGS: Surgical changes and devices: None. Lungs and pleura: The branching opacity at the right lung base probably represents normal bronchovascular structures. There is no large area of pulmonary consolidation. No effusion or pneumothorax is evident. Mediastinum: Mediastinal contours appear normal. Heart size is normal. Bones and chest wall: No suspicious bony lesions. Overlying soft tissues appear unremarkable. IMPRESSION: No definite acute cardiopulmonary processes evident. Dictated by: Tone Shaw M.D. on 01/19/2020 at 8:16 Approved by: Tone Shaw M.D. on 01/19/2020 at 8:18
--- NOTE | 2020-01-19 00:24 | ED.ARRPALP ---
HPI - Arrhythmia/Palpitations General Chief Complaint: Arrhythmia/Palpitations Stated Complaint: heart was beating fast, hard to breathe off and on Time Seen by Provider: 01/19/20 00:09 Source: patient Mode of arrival: Ambulatory Limitations: no limitations History of Present Illness HPI narrative: 54-year-old female nonsmoker noncontributory medical history presents with multiple family members in the chief complaint of episodes of a racing heart associated with shortness of breath and lightheadedness over the course of the day. She denies any chest pain associated. She denies any history of the same. She has had no recent travel, exposure to persons known to have COVID-19, history of clots or cancer. She denies any symptoms currently. She denies any dietary change but does state that she started taking an [id number] diuretic within the past day or 2 because she wants to lose some weight. She denies any provocation, palliation of her symptoms MD complaint: rapid heart beat, heart racing and palpitations Onset (ago): hour(s) Duration: intermittent and now resolved Severity: moderate Context: occurred during rest Associated symptoms: denies other symptoms Related Data Home Medications Medication Instructions Recorded Confirmed ASPIRIN (Aspirin) #0 08/08/10 Previous Rx's Medication Instructions Recorded docusate sodium [Colace] 100 mg PO BID #14 cap 10/18/18 oxycodone 5 mg PO Q4HR PRN #30 tab 10/18/18 sennosides [Senokot] 8.6 mg PO BEDTIME #10 tab 10/18/18 Allergies Allergy/AdvReac Type Severity Reaction Status Date / Time azithromycin Allergy Verified 10/17/18 06:45 [From Zithromax Z-Brayden] Review of Systems Constitutional Constitutional: Denies chills, Denies fatigue, Denies fever(s), Denies frequent falls, Denies lethargy and Denies weakness Eyes Eyes: Denies change in vision, Denies eye discharge, Denies irritation and Denies loss of vision ENT Ears, Nose, Mouth, and Throat: Denies change in voice, Denies dizziness, Denies neck pain, Denies sore throat and Denies throat swelling Cardiovascular Cardiovascular: Denies chest pain, Denies irregular heart rhythm, Reports lightheadedness, Reports palpitations, Reports dyspnea, Denies dyspnea on exertion and Denies orthopnea Respiratory Respiratory: Denies cough, Reports dyspnea, Denies dyspnea on exertion and Denies wheezing Gastrointestinal Gastrointestinal: Denies abdominal pain, Denies change in bowel habits, Denies diarrhea, Denies nausea and Denies vomiting Musculoskeletal Musculoskeletal: Denies neck pain and Denies numbness Integumentary/Breasts Skin/Breast: Denies pruritus, Denies erythema, Denies rash and Denies wounds Neurologic Neurologic: Denies behavioral changes, Denies confusion, Denies dizziness, Denies frequent falls, Denies loss of vision, Denies numbness and Denies weakness Psychiatric Psychiatric: Denies anxiety, Denies behavioral changes, Denies confusion, Denies depression, Denies homicidal ideation and Denies suicidal ideation Endocrine Endocrine: Denies fatigue, Denies flushing and Reports palpitations Hematologic/Lymphatic Hematologic/Lymphatic: Denies easy bruising Allergic/Immunologic Allergic/Immunologic: Denies urticaria, Denies throat swelling and Denies wheezing Patient History Medical History History of bursitis (Acute) No significant past medical history (Acute) Surgical History History of section (Acute) Family History Mother Hypertension Social History marital status: household members: spouse and children occupational status: employed Smoking Status: Never smoker alcohol intake: current Smoking Status: Never smoker alcohol intake frequency: a few times a week Substance Use Type: does not use Exam Narrative Exam Narrative: GENERAL: [54] year old patient appears stated age. Well-nourished, well-developed patient, in mild distress. HEAD: Atraumatic. Normocephalic. EYES: Pupils equal round and reactive. Extraocular motions intact. No scleral icterus. No injection or drainage. ENT: Nose without bleeding, purulent drainage. Throat without erythema, tonsillar hypertrophy or exudate. Airway patent. NECK: Trachea midline. Non tender CARDIOVASCULAR: Regular rate and rhythm without murmurs, gallops, or rubs. RESPIRATORY: Clear to auscultation. Breath sounds equal bilaterally. No wheezes, rales, or rhonchi. GASTROINTESTINAL: Abdomen soft, non-tender, nondistended. EXTREMITIES: No edema or joint tenderness. BACK: Nontender without deformity or crepitance. No flank tenderness. NEURO: AOx3. SKIN: No rash or erythema of visible areas Initial Vital Signs Initial Vital Signs: Vital Signs Temperature 97.8 F 01/19/20 00:14 Pulse Rate 92 H 01/19/20 00:14 Respiratory Rate 22 01/19/20 00:14 Blood Pressure 140/86 01/19/20 00:14 Pulse Oximetry 99 01/19/20 00:14 Course Orders Ordered: ED Orders 01/19/20 00:21 XR chest 1V Stat EKG-12 Lead Stat 01/19/20 00:50 Basic Metabolic Panel Stat Complete Blood Count AUTO DIFF Stat D Dimer Stat Magnesium Stat Thyroid Stimulating Hormone Stat Troponin & CK Cardiac Panel Stat Discontinued Medications Sodium Chloride (Normal Saline 0.9%) 1,000 mls @ 150 mls/hr IV CONT NIKOLAS Last Admin: 01/19/20 00:51 Dose: Not Given Documented by: PAM Vital Signs Vital signs: Vital Signs - 8 hr 01/19/20 00:14 01/19/20 01:23 Temperature 97.8 F Pulse Rate 92 H 76 Respiratory Rate 22 22 Blood Pressure 140/86 Blood Pressure [Left Arm] 116/57 L Pulse Oximetry 99 96 MDM - Arrhythmia/Palpitations Lab Data Result diagrams: 01/19/20 00:50 01/19/20 00:50 Labs: Lab Results 01/19/20 01/19/20 01/19/20 Range/Units 00:50 00:50 00:50 WBC 8.6 (4.5-11.0) X10^3/uL RBC 4.47 (4.0-5.2) X10^6/uL Hgb 14.1 (12.0-16.0) g/dL Hct 41.6 (36-46) % MCV 93.0 (80-100) fL MCH 31.6 (26-34) PG MCHC 33.9 (30-36) % RDW 12.8 (11.6-14.8) % Plt Count 261 (150-400) X10^3/uL Neut % (Auto) 57.5 (50-75) % Lymph % (Auto) 31.7 (25-40) % Motley % (Auto) 8.6 (3-14) % Eos % (Auto) 1.3 L (2-4) % Baso % (Auto) 0.9 (0-2) % Neut # (Auto) 4900 (3193-5266) /uL Lymph # (Auto) 2700 (1230-4147) /uL Motley # (Auto) 700 (0-900) /uL Eos # (Auto) 100 (0-450) /uL Baso # (Auto) 100 (0-100) /uL Plt Morphology Comment * RBC Morphology Normal morphology D-Dimer < 200 (<230) ng/mL Sodium 141 (137-145) mmol/L Potassium 4.2 (3.4-5.1) mmol/L Chloride 105 (98-107) mmol/L Carbon Dioxide 30 (22-32) mmol/L BUN 23 H (7-17) mg/dL Creatinine 1.11 H (0.52-1.04) mg/dL Estimated GFR 51.0 L (>60) mL/min BUN/Creatinine Ratio 20.7 (6-22) Glucose 109 H (70-100) mg/dL Calcium 11.0 H (8.4-10.2) mg/dL Magnesium 2.1 (1.6-2.3) mg/dL Total Creatine Kinase 65 (30-135) U/L CK-MB (CK-2) TNP CK-MB (CK-2) Rel Index TNP Troponin I < 0.012 (0.01-0.034) ng/mL TSH (0.47-4.68) uIU/mL 01/19/20 Range/Units 00:50 WBC (4.5-11.0) X10^3/uL RBC (4.0-5.2) X10^6/uL Hgb (12.0-16.0) g/dL Hct (36-46) % MCV (80-100) fL MCH (26-34) PG MCHC (30-36) % RDW (11.6-14.8) % Plt Count (150-400) X10^3/uL Neut % (Auto) (50-75) % Lymph % (Auto) (25-40) % Motley % (Auto) (3-14) % Eos % (Auto) (2-4) % Baso % (Auto) (0-2) % Neut # (Auto) (9021-8089) /uL Lymph # (Auto) (5936-2656) /uL Motley # (Auto) (0-900) /uL Eos # (Auto) (0-450) /uL Baso # (Auto) (0-100) /uL Plt Morphology Comment RBC Morphology D-Dimer (<230) ng/mL Sodium (137-145) mmol/L Potassium (3.4-5.1) mmol/L Chloride (98-107) mmol/L Carbon Dioxide (22-32) mmol/L BUN (7-17) mg/dL Creatinine (0.52-1.04) mg/dL Estimated GFR (>60) mL/min BUN/Creatinine Ratio (6-22) Glucose (70-100) mg/dL Calcium (8.4-10.2) mg/dL Magnesium (1.6-2.3) mg/dL Total Creatine Kinase (30-135) U/L CK-MB (CK-2) CK-MB (CK-2) Rel Index Troponin I (0.01-0.034) ng/mL TSH 7.07 H (0.47-4.68) uIU/mL Urine Dip Bedside Urine Glucose Negative Bedside Urine Bilirubin - Negative Bedside Urine Ketone - Negative Urine Specific [place] 1.010 Bedside Urine Occult Blood - Negative Bedside Urine pH 7.0 Bedside Urine Protein - Negative Bedside Urine Urobilinogen - Negative Bedside Urine Nitrite - Negative Bedside Urine Leukocytes - Negative Esterase ECG Data Attestation: I personally reviewed and interpreted this ECG as follows: Prior ECG tracings: not available for review Discharge Plan Departure Patient Disposition: Home Clinical Impression: Heart palpitations, Acute dehydration Discharge Date/Time: 01/19/20 01:55 Instructions: DI for Palpitations Activity Restrictions/Additional Instructions: *You have been diagnosed with [palpitations with shortness of breath likely worsened by dehydration] *What to do: *Please discuss your new over the counter diuretic with [facility] doctor, otherwise take medications as directed *Follow up with your primary care provider in 2-3 days, call for an appointment. Let them know you were seen in the Emergency Department and that we ask that you be seen in follow up *Return to ER if you should have any new, worsening or concerning symptoms Prescriptions: No Action ASPIRIN (Aspirin) Qty: 0 RF: 0 oxycodone 5 mg Tablet 5 mg PO Q4HR PRN (Reason: Pain, Moderate (4-6)) Qty: 30 RF: 0 sennosides [Senokot] 8.6 mg tablet 8.6 mg PO BEDTIME Qty: 10 RF: 1 docusate sodium [Colace] 100 mg capsule 100 mg PO BID Qty: 14 RF: 1 Referrals: Teresa Curiel [Primary Care Provider] -
[2020-01-19 01:03] LABS: Add Manual Diff / Slide Review SLIDE REVIEW; Basophils Absolute Auto 100 /uL (0-100); Basophils Percent Auto 0.9 % (0-2); Eosinophils Absolute Auto 100 /uL (0-450); Eosinophils Percent Auto 1.3 % (2-4); Hematocrit 41.6 % (36-46); Hemoglobin 14.1 g/dL (12.0-16.0); Lymphocytes Absolute Auto 2700 /uL (1100-4500); Lymphocytes Percent Auto 31.7 % (25-40); Mean Corpuscular HGB Conc 33.9 % (30-36); Mean Corpuscular Hemoglobin 31.6 PG (26-34); Monocytes Absolute Auto 700 /uL (0-900); Monocytes Percent Auto 8.6 % (3-14); Neutrophils Absolute Auto 4900 /uL (1500-7000); Neutrophils Percent Auto 57.5 % (50-75); Platelet Count 261 X10^3/uL (150-400); Red Blood Cell Count 4.47 X10^6/uL (4.0-5.2); Red Cell Distribution Width 12.8 % (11.6-14.8); White Blood Cell Count 8.6 X10^3/uL (4.5-11.0)
[2020-01-19 01:11] LABS: D Dimer < 200 ng/mL (<230)
[2020-01-19 01:12] LABS: BUN Creatinine Ratio 20.7 (6-22); Blood Urea Nitrogen 23 mg/dL (7-17); Carbon Dioxide 30 mmol/L (22-32); Chloride 105 mmol/L (98-107); Creatine Kinase 65 U/L (30-135); Glucose 109 mg/dL (70-100); HEMOLYSIS < 15 (0-50); Magnesium 2.1 mg/dL (1.6-2.3); Potassium 4.2 mmol/L (3.4-5.1); Sodium 141 mmol/L (137-145)
[2020-01-19 01:23] VITALS: BP 116/57; PULSE 76; RESP 22; O2SAT 96
[2020-01-19 01:24] LABS: Troponin I < 0.012 ng/mL (0.01-0.034)
[2020-01-19 01:39] LABS: RBC Morphology Normal Morphology
[2020-01-19 01:52] LABS: Thyroid Stimulating Hormone 7.07 uIU/mL (0.47-4.68)
== END 2020-01-19 01:55 | disposition home or self-care (01) ==
PROVIDERS: Emergency Provider Emergency Medicine; PCP Nurse Practitioner Family
DX: R00.2 Palpitations (principal); E86.0 Dehydration; R06.02 Shortness of breath
CPT/HCPCS: 36415; 71045; 80048; 81003; 82550; 83735; 84443; 84484; 85025; 85379; 93005; 93010; 99283; 99284

== ENCOUNTER → 2020-12-25 15:04 | Outpatient (CLI) | payer OTHER, SELFPAY ==
[2018-10-17 15:00] VITALS: BMI 25.7
--- NOTE | 2020-12-25 | DI.ECHO.S_ITS ---
[place] [facility]---------+ [facility] +---------+ : : [address] : : : : [id number] : : : : Phone: [phone]+ Echocardiogram Report + + :Name: ANAI AUGUSITN Study Date: 12/25/2020 Height: 65 in : :[facility] ReadingLocation: Weight: 155 lb : : Gender: Female BSA: 1.8 m2 : :: 1965 Age: 55 yrs BP: 146/89 mmHg: :Reason For Study: Cardiomyopathy, Ischemic : :Ordering Physician: JAYCE, : :LUISITO Hardin Performed By: Will Villegas : :Referring: LUISITO EDUARDO : + + Interpretation Summary 1) Normal left ventricular thickness, size, wall motion, and systolic function (EF 60-65%). 2) Normal right ventricular size and function. 3) No significant valvular abnormalities. 4) No prior Echo available for comparison. Procedure: A two-dimensional transthoracic echocardiogram with color flow and Doppler was performed. The study quality was technically adequate. There is no prior echocardiogram noted for this patient. The patient was in sinus rhythm with heart rates between 81-105 bpm during the exam. Left Ventricle: The left ventricle is normal in size and wall thickness. Left ventricular systolic function is normal. The ejection fraction is estimated to be 60-65%. There are no focal wall motion abnormalities. Diastolic parameters suggest probable normal left ventricular diastolic function and normal filling pressures. Right Ventricle: The right ventricle is normal in size and function. Atria: Both atria are normal in size. There is no Doppler evidence for an interatrial shunt. Mitral Valve: The mitral valve is normal in structure and function. There is no mitral regurgitation noted. Aortic Valve: The aortic valve is normal in structure and function. There is no aortic valve stenosis. No aortic regurgitation is present. Tricuspid Valve: The tricuspid valve is normal in structure and function. No tricuspid regurgitation. Pulmonary artery pressures cannot be estimated because of the lack of a measurable TR jet velocity but the IVC suggests a CVP of around 3 mmHg. Pulmonic Valve: The pulmonic valve is normal in structure and function. There is no pulmonic valvular regurgitation. Great Vessels: The aortic root is normal size. The dimensions of the ascending aorta are normal. The IVC is of normal diameter and collapses greater than 50% with a sniff. This suggests a low right atrial pressure of 3 mm Hg. Pericardium/ Pleura There is no pericardial effusion. There is no pleural effusion. MMode/2D Measurements & Calculations LVIDd: 4.5 cm LVOT diam: 1.9 cm LVIDs: 2.8 cm Ao root diam: 2.9 cm FS: 36.8 % asc Aorta Diam: 2.8 cm IVSd: 0.86 cm LVPWd: 0.67 cm LV león. diameter/BSA (cm/m^2): 2.5 LV sys. diameter/BSA (cm/m^2): 1.6 LA A2 area: 11.9 cm2 RA long axis: 4.6 cm LA A4 area: 12.6 cm2 RA area: 11.3 cm2 LA length (vol): 4.0 cm RA vol: 23.7 ml LA vol: 31.6 ml RA : 13.3 ml/m2 LA vol index: 17.8 ml/m2 TAPSE: 2.0 cm Doppler Measurements & Calculations Ao V2 max: 124.1 cm/sec LVOT Max Oscar: 122.3 cm/sec Ao V2 mean: 92.2 cm/sec LV V1 max P.0 mmHg Ao max P.2 mmHg LV V1 VTI: 21.6 cm Ao mean P.7 mmHg ION(I,D): 2.7 cm2 Ao V2 VTI: 23.9 cm ION(V,D): 2.9 cm2 sev ratio: 0.90 ION indexed to BSA (cm^2/m^2): 1.5 MV E max oscar: 75.8 cm/sec PA pr(Accel): 44.7 mmHg MV A max oscar: 84.9 cm/sec MV E/A: 0.89 Med Peak E' Oscar: 6.8 cm/sec E/E' med: 11.1 Lat Peak E' Oscar: 11.1 cm/sec E/E' lat: 6.9 E/e' average: 9.0 MV dec time: 0.18 sec SV(LVOT): 64.1 ml Reading Physician:05:08 PM
== END ==
PROVIDERS: PCP Nurse Practitioner Family; Referring Provider Nurse Practitioner Family; Visit Provider Nurse Practitioner Family
DX: I25.5 Ischemic cardiomyopathy (principal); Z82.49 Family history of ischemic heart disease and other diseases of the circulatory system
CPT/HCPCS: 93306

== ENCOUNTER 2021-04-30 11:53 | Emergency (ER) | payer OTHER, SELFPAY ==
[2018-10-17 15:00] VITALS: BMI 25.7
[2021-04-30 12:15] VITALS: BP 143/77; PULSE 81; RESP 14; TEMP 36.7; O2SAT 99; BMI 25.1
[2021-04-30 13:10] LABS: Add Manual Diff / Slide Review NO; Basophils Absolute Auto 0 /uL (0-100); Basophils Percent Auto 0.6 % (0-2); Eosinophils Absolute Auto 100 /uL (0-450); Eosinophils Percent Auto 0.9 % (2-4); Hematocrit 40.9 % (36-46); Hemoglobin 13.7 g/dL (12.0-16.0); Lymphocytes Absolute Auto 1400 /uL (1100-4500); Mean Corpuscular HGB Conc 33.5 % (30-36); Mean Corpuscular Hemoglobin 31.3 PG (26-34); Mean Corpuscular Volume 93.5 fL (80-100); Monocytes Absolute Auto 400 /uL (0-900); Monocytes Percent Auto 5.7 % (3-14); Neutrophils Absolute Auto 4700 /uL (1500-7000); Neutrophils Percent Auto 70.8 % (50-75); Platelet Count 253 X10^3/uL (150-400); Red Blood Cell Count 4.37 X10^6/uL (4.0-5.2); Red Cell Distribution Width 13.1 % (11.6-14.8); White Blood Cell Count 6.6 X10^3/uL (4.5-11.0)
[2021-04-30 14:00] LABS: Alanine Aminotransferase 24 IU/L (<35); Albumin 4.7 g/dL (3.5-5.0); Albumin Globulin Ratio 1.4 (1.0-2.8); Alkaline Phosphatase 69 U/L (38-126); Aspartate Aminotransferase 38 IU/L (14-36); Bilirubin Total 0.6 mg/dL (0.2-1.3); Blood Urea Nitrogen 12 mg/dL (7-17); Calcium 10.1 mg/dL (8.4-10.2); Carbon Dioxide 28 mmol/L (22-32); Chloride 107 mmol/L (98-107); Estimated Glomerular Filt Rate > 60.0 mL/min (>60); Globulin 3.4 g/dL (1.7-4.1); Glucose 99 mg/dL (70-100); HEMOLYSIS < 15 (0-50); Lipase 101 U/L (23-300); Potassium 4.3 mmol/L (3.4-5.1); Sodium 142 mmol/L (137-145); Total Protein 8.1 g/dL (6.3-8.2)
[2021-04-30 14:46] VITALS: BP 134/66; PULSE 86; RESP 18; O2SAT 98
--- NOTE | 2021-04-30 14:51 | PC.NURSE ---
Patient c/o abd bloating x 1.5 days, chronic LANG, denies visual disturbances, loss of appetite and chronic nausea. Denies fever/diarrhea/vomiting. States her LANG feels like on octopus and she can feel her blood running through her veins. States she has bas breath, she has not eaten in 24 hrs but drinks plenty of water. States her fingers and toes tingle and feels very fatigued lately. Patient is not vaccinated for Covid 19, states she has a vaccine exemption.
[2021-04-30 15:00] VITALS: BP 123/68; PULSE 79; O2SAT 97
[2021-04-30 15:30] VITALS: BP 123/73; PULSE 81; O2SAT 97
[2021-04-30] MEDS: MAG HYDROX/ALUMINUM/SIMETH SUS 20 ML, LIDOCAINE VISCOUS 2% 15 ML PO (15:35)
[2021-04-30 15:58] LABS: Creatine Kinase 63 U/L (30-135)
[2021-04-30 16:00] VITALS: BP 128/70; PULSE 80; O2SAT 97
[2021-04-30 16:11] LABS: Troponin I < 0.012 ng/mL (0.01-0.034)
--- NOTE | 2021-04-30 16:13 | DI.CT.S_ITS ---
PROCEDURE: CT ABDOMEN PELVIS W CON INDICATIONS: abd pain, weight loss TECHNIQUE: After the administration of intravenous contrast, axial sections acquired from the lung bases to the pubic symphysis. Coronal and sagittal reformats were performed. For radiation dose reduction, the following was used: automated exposure control, adjustment of mA and/or kV according to patient size. COMPARISON: [facility], CT, CT ABDOMEN PELVIS W CON, 10/17/2018, 7:19. FINDINGS: Image quality: Excellent. Lung bases: Minimal bibasilar atelectasis. Small hiatal hernia. Heart: No significant findings. ABDOMEN: Liver: Unremarkable. Gallbladder: Unremarkable. Biliary ducts: Unremarkable. Pancreas: Unremarkable. Spleen: Unremarkable. Adrenal Glands: Unremarkable. Kidneys and Ureters: Stable appearance of bilateral renal hypodensities likely representing cysts. These are larger on the left as before. Stable 2 mm punctate calcification in the left kidney likely representing a vascular calcification versus nonobstructive renal stone. Bilateral ureters are normal in course and caliber. Stomach and Bowel: Visualized stomach and small bowel appear unremarkable. No evidence for acute inflammatory process or obstruction. Multiple scattered colonic diverticula without evidence for acute diverticulitis. Status post appendectomy. Peritoneum: No abnormal intraperitoneal fluid. No free air. Ventral Wall: Small fat containing umbilical hernia without acute inflammation. Previously described anterior midline subcutaneous soft tissue mass in the upper abdominal wall just to the right of midline near the xiphoid, now measures approximately 2.5 x 2.0 cm, previously 2.2 x 1.5 cm. No surrounding inflammatory changes. No evidence for internal vascularity. This again likely represents a sebaceous cyst. Abdominal Nodes: No retroperitoneal or mesenteric adenopathy by size criteria. Vessels: Aorta and inferior vena cava are normal in size. PELVIS: Pelvic Organs: Unremarkable. Bladder: Unremarkable. Pelvic Nodes: No enlarged lymph nodes. Miscellaneous: No inguinal hernias are seen. Bones: Unremarkable. IMPRESSION: 1. CT abdomen and pelvis without acute abnormalities. No suspicious mass or adenopathy. 2. Colonic diverticulosis without evidence for acute diverticulitis. 3. Small hiatal hernia, unchanged. 4. Interval enlargement of superficial, subdermal soft tissue nodule now measuring 2.5 x 2.0 cm versus 2.2 x 1.5 cm. This again likely represents a sebaceous cyst. Recommend correlation with clinical examination . 5. Possible 2 mm vascular calcification versus nonobstructing renal stone in the left kidney. Dictated by: Jaylen Muro M.D. on 04/30/2021 at 16:44 Approved by: Jaylen Muro M.D. on 04/30/2021 at 16:54
--- NOTE | 2021-04-30 16:18 | ED_ITS ---
HPI - Abdominal Pain <Marcos Chandra PA-C - Last Filed: 04/30/21 18:50> General Chief Complaint: Abdominal Pain Stated Complaint: Thinks Stomach Ulcer Time Seen by Provider: 04/30/21 14:06 Source: patient Mode of arrival: Ambulatory Limitations: no limitations History of Present Illness HPI narrative: Susanna presents today with her daughter for chief complaint of abdominal bloating, decreased appetite, headache, weight loss that started about 2 months ago. She reports that she has not experienced anything similar to this in the past. She denies any acid reflux. She has noticed that some foods make her symptoms worse and some make her symptoms better but is not sure specifically which ones do which. She denies any chest pain, shortness of breath, urinary symptoms, rash, or any other acute concerns or complaints at this time. She denies any sore throat, cough or known exposure to anyone with COVID. She is not vaccinated for COVID. Related Data Home Medications Medication Instructions Recorded Confirmed ASPIRIN (Aspirin) #0 08/08/10 Previous Rx's Medication Instructions Recorded docusate sodium 100 mg capsule 100 mg PO BID #14 cap 10/18/18 (Colace) oxycodone 5 mg tablet 5 mg PO Q4HR PRN #30 tab 10/18/18 sennosides 8.6 mg tablet (Senokot) 8.6 mg PO BEDTIME #10 tab 10/18/18 Allergies Allergy/AdvReac Type Severity Reaction Status Date / Time azithromycin Allergy Verified 04/30/21 12:15 [From Zithromax Z-Brayden] Review of Systems <Marcos Chandra PA-C - Last Filed: 04/30/21 18:50> Review of Systems Narrative: As per HPI Patient History <Marcos Chandra PA-C - Last Filed: 04/30/21 18:50> Medical History (Updated 04/30/21 @ 17:28 by Marcos Chandra PA-C) History of bursitis No significant past medical history Surgical History History of section Family History Mother Hypertension Social History marital status: household members: spouse and children occupational status: employed Smoking Status: Never smoker alcohol intake: current Smoking Status: Never smoker alcohol intake frequency: a few times a week Substance Use Type: does not use Exam <Marcos Chandra PA-C - Last Filed: 04/30/21 18:50> Narrative Exam Narrative: Const General: cooperative, healthy appearing, comfortable and no acute distress Nutritional Appearance: average body habitus and well nourished Orientation: alert and oriented x3 HENMT Head: normal to inspection and normocephalic Ears: hearing grossly normal bilaterally, external ears normal, TM's normal bilaterally, EAC's normal, mastoids normal and no periauricular adenopathy Nose: external nose normal, nares normal and no nasal discharge Face and sinus: normal facial exam, sinuses nontender and face symmetric Mouth: oral mucosae normal, lip normal, tongue normal and moist mucous membranes Teeth and gingiva: dentition normal and gingiva normal Throat: posterior oropharynx normal, uvula midline, no postnasal drainage and no uvular edema Eyes periorbital findings normal, eyelids normal, conjunctivae normal Neck: normal visual inspection, full ROM, no lymphadenopathy, no meningeal signs and supple Resp normal respiratory effort, able to speak in complete sentences, not labored and no respiratory distress, clear to auscultation bilaterally, no crackles, no rales and no wheezes Cardio regular rate regular rhythm Heart Sounds: no gallops, no murmurs and no rubs GI Mildly distended abdomen, nontender to palpation, negative Toussaint sign, no masses noted. Normal bowel sounds. Neuro Alert and Oriented x3, normal gait, moves all extremities. Initial Vital Signs Initial Vital Signs: Vital Signs Temperature 98.1 F 04/30/21 12:15 Pulse Rate 81 04/30/21 12:15 Respiratory Rate 14 04/30/21 12:15 Blood Pressure 143/77 H 04/30/21 12:15 Pulse Oximetry 99 04/30/21 12:15 <Luda Ferrari DO - Last Filed: 05/01/21 11:28> Initial Vital Signs Initial Vital Signs: Vital Signs Temperature 98.1 F 04/30/21 12:15 Pulse Rate 81 04/30/21 12:15 Respiratory Rate 14 04/30/21 12:15 Blood Pressure 143/77 H 04/30/21 12:15 Pulse Oximetry 99 04/30/21 12:15 Course <Marcos Chandra PA-C - Last Filed: 04/30/21 18:50> Orders Ordered: Discontinued Medications Al Hydrox/Mg Hydrox/Simethicone 20 ml/ Lidocaine HCl 15 ml 0 ml PO NOW ONE Stop: 04/30/21 15:26 Last Admin: 04/30/21 15:35 Dose: 20 ml Documented by: PING Al Hydrox/Mg Hydrox/Simethicone 20 ml/ Lidocaine HCl 15 ml 0 ml PO NOW ONE Stop: 04/30/21 15:39 Last Admin: 04/30/21 15:41 Dose: Not Given Documented by: PING Vital Signs Vital signs: Vital Signs - 8 hr 04/30/21 12:15 04/30/21 14:46 04/30/21 15:00 Temperature 98.1 F Pulse Rate 81 86 79 Respiratory Rate 14 18 Blood Pressure 143/77 H 134/66 123/68 Pulse Oximetry 99 98 97 04/30/21 15:30 04/30/21 16:00 Temperature Pulse Rate 81 80 Respiratory Rate Blood Pressure 123/73 128/70 Pulse Oximetry 97 97 <Luda Ferrari DO - Last Filed: 05/01/21 11:28> Orders Ordered: Discontinued Medications Al Hydrox/Mg Hydrox/Simethicone 20 ml/ Lidocaine HCl 15 ml 0 ml PO NOW ONE Stop: 04/30/21 15:26 Last Admin: 04/30/21 15:35 Dose: 20 ml Documented by: PING Al Hydrox/Mg Hydrox/Simethicone 20 ml/ Lidocaine HCl 15 ml 0 ml PO NOW ONE Stop: 04/30/21 15:39 Last Admin: 04/30/21 15:41 Dose: Not Given Documented by: PING Vital Signs Vital signs: Vital Signs - 8 hr 04/30/21 12:15 04/30/21 14:46 04/30/21 15:00 Temperature 98.1 F Pulse Rate 81 86 79 Respiratory Rate 14 18 Blood Pressure 143/77 H 134/66 123/68 Pulse Oximetry 99 98 97 04/30/21 15:30 04/30/21 16:00 Temperature Pulse Rate 81 80 Respiratory Rate Blood Pressure 123/73 128/70 Pulse Oximetry 97 97 MDM - Abdominal Pain <Marcos Chandra PA-C - Last Filed: 04/30/21 18:50> Lab Data Result diagrams: 04/30/21 12:50 04/30/21 12:50 Labs: Lab Results 04/30/21 04/30/21 04/30/21 Range/Units 12:50 12:50 12:50 WBC 6.6 (4.5-11.0) X10^3/uL RBC 4.37 (4.0-5.2) X10^6/uL Hgb 13.7 (12.0-16.0) g/dL Hct 40.9 (36-46) % MCV 93.5 (80-100) fL MCH 31.3 (26-34) PG MCHC 33.5 (30-36) % RDW 13.1 (11.6-14.8) % Plt Count 253 (150-400) X10^3/uL Neut % (Auto) 70.8 (50-75) % Lymph % (Auto) 22.0 L (25-40) % [place] % (Auto) 5.7 (3-14) % Eos % (Auto) 0.9 L (2-4) % Baso % (Auto) 0.6 (0-2) % Neut # (Auto) 4700 (4578-0759) /uL Lymph # (Auto) 1400 (7672-6015) /uL [place] # (Auto) 400 (0-900) /uL Eos # (Auto) 100 (0-450) /uL Baso # (Auto) 0 (0-100) /uL Sodium 142 (137-145) mmol/L Potassium 4.3 (3.4-5.1) mmol/L Chloride 107 (98-107) mmol/L Carbon Dioxide 28 (22-32) mmol/L BUN 12 (7-17) mg/dL Creatinine 0.75 (0.52-1.04) mg/dL Estimated GFR > 60.0 (>60) mL/min BUN/Creatinine Ratio 16.0 (6-22) Glucose 99 (70-100) mg/dL Calcium 10.1 (8.4-10.2) mg/dL Total Bilirubin 0.6 (0.2-1.3) mg/dL AST 38 H (14-36) IU/L ALT 24 (<35) IU/L Alkaline Phosphatase 69 (38-126) U/L Total Creatine Kinase 63 (30-135) U/L CK-MB (CK-2) TNP CK-MB (CK-2) Rel Index TNP Troponin I < 0.012 (0.01-0.034) ng/mL Total Protein 8.1 (6.3-8.2) g/dL Albumin 4.7 (3.5-5.0) g/dL Globulin 3.4 (1.7-4.1) g/dL Albumin/Globulin Ratio 1.4 (1.0-2.8) Lipase 101 (23-300) U/L Point of care testing: Urine Dip Bedside Urine Glucose Negative Bedside Urine Bilirubin - Negative Bedside Urine Ketone - Negative Urine Specific Arona 1.015 Bedside Urine Occult Blood - Negative Bedside Urine pH 6.0 Bedside Urine Protein - Negative Bedside Urine Urobilinogen - Negative Bedside Urine Nitrite - Negative Bedside Urine Leukocytes - Negative Esterase MDM Narrative Medical decision making narrative: Differential diagnosis includes neoplasm, IBS, ulcerative colitis, bowel obstruction, ACS, peptic ulcer disease, acid reflux. Patient appears well at this time and has a reassuring physical examination. EKG does not suggest acute ischemia and her troponin and CK-MB are within normal limits. She denies any chest pain or shortness of breath. CT shows small hiatal hernia. Her decreased appetite, early satiety, abdominal bloating is consistent with acid reflux and/or peptic ulcer disease. Recommend PPI therapy in addition to food diary as there could be some component of IBS to her symptoms. PCP follow-up. ER return precautions were discussed with patient in detail. Patient verbalizes understanding and agrees to plan and has no further concerns at this time. Thank you A [id number] system was used with the dictation of this note. Please disregard any spelling or grammatical errors. <Luda Ferrari, DO - Last Filed: 05/01/21 11:28> Lab Data Labs: Lab Results 04/30/21 04/30/21 04/30/21 Range/Units 12:50 12:50 12:50 WBC 6.6 (4.5-11.0) X10^3/uL RBC 4.37 (4.0-5.2) X10^6/uL Hgb 13.7 (12.0-16.0) g/dL Hct 40.9 (36-46) % MCV 93.5 (80-100) fL MCH 31.3 (26-34) PG MCHC 33.5 (30-36) % RDW 13.1 (11.6-14.8) % Plt Count 253 (150-400) X10^3/uL Neut % (Auto) 70.8 (50-75) % Lymph % (Auto) 22.0 L (25-40) % [place] % (Auto) 5.7 (3-14) % Eos % (Auto) 0.9 L (2-4) % Baso % (Auto) 0.6 (0-2) % Neut # (Auto) 4700 (1305-6499) /uL Lymph # (Auto) 1400 (7565-6244) /uL [place] # (Auto) 400 (0-900) /uL Eos # (Auto) 100 (0-450) /uL Baso # (Auto) 0 (0-100) /uL Sodium 142 (137-145) mmol/L Potassium 4.3 (3.4-5.1) mmol/L Chloride 107 (98-107) mmol/L Carbon Dioxide 28 (22-32) mmol/L BUN 12 (7-17) mg/dL Creatinine 0.75 (0.52-1.04) mg/dL Estimated GFR > 60.0 (>60) mL/min BUN/Creatinine Ratio 16.0 (6-22) Glucose 99 (70-100) mg/dL Calcium 10.1 (8.4-10.2) mg/dL Total Bilirubin 0.6 (0.2-1.3) mg/dL AST 38 H (14-36) IU/L ALT 24 (<35) IU/L Alkaline Phosphatase 69 (38-126) U/L Total Creatine Kinase 63 (30-135) U/L CK-MB (CK-2) TNP CK-MB (CK-2) Rel Index TNP Troponin I < 0.012 (0.01-0.034) ng/mL Total Protein 8.1 (6.3-8.2) g/dL Albumin 4.7 (3.5-5.0) g/dL Globulin 3.4 (1.7-4.1) g/dL Albumin/Globulin Ratio 1.4 (1.0-2.8) Lipase 101 (23-300) U/L Point of care testing: Urine Dip Bedside Urine Glucose Negative Bedside Urine Bilirubin - Negative Bedside Urine Ketone - Negative Urine Specific [place]ron[place] 1.015 Bedside Urine Occult Blood - Negative Bedside Urine pH 6.0 Bedside Urine Protein - Negative Bedside Urine Urobilinogen - Negative Bedside Urine Nitrite - Negative Bedside Urine Leukocytes - Negative Esterase Discharge Plan Departure Patient Disposition: Home Clinical Impression: Abdominal bloating Instructions: DI for Irritable Bowel Syndrome Activity Restrictions/Additional Instructions: It was nice to meet you this evening. Please go ahead and start that food diary that we discussed and follow-up with your primary care provider for further evaluation. You can take the acid reflux medication to see if this helps your symptoms as well. Please return if you experience fever, acutely worsening pain, or any other new or worsening symptoms. Thank you Marcos Chandra PA-C Prescriptions: No Action ASPIRIN (Aspirin) Qty: 0 RF: 0 oxycodone 5 mg Tablet 5 mg PO Q4HR PRN (Reason: Pain, Moderate (4-6)) Qty: 30 RF: 0 sennosides [Senokot] 8.6 mg tablet 8.6 mg PO BEDTIME Qty: 10 RF: 1 docusate sodium [Colace] 100 mg capsule 100 mg PO BID Qty: 14 RF: 1 Referrals: Teresa Curiel ARNP [Primary Care Provider] - <Luda Ferrari DO - Last Filed: 05/01/21 11:28> Cosign ED Attending Diamond Attestation: I was immediately available in the department for consultation. Documentation has been reviewed.
== END 2021-04-30 17:46 | disposition home or self-care (01) ==
PROVIDERS: Emergency Medicine; Emergency Provider Physician Assistant; PCP Nurse Practitioner Family
DX: R14.0 Abdominal distension (gaseous) (principal); R51.9 Headache, unspecified; R63.4 Abnormal weight loss
CPT/HCPCS: 36415; 74177; 80053; 81003; 82550; 83690; 84484; 85025; 99283; 99284; Q9967

== ENCOUNTER → 2021-05-05 17:50 | Outpatient (CLI) | payer OTHER, SELFPAY ==
[2018-10-17 15:00] VITALS: BMI 25.7
--- NOTE | 2021-05-05 | DI.RAD.S_ITS ---
PROCEDURE: XR CERVICAL SPINE 4V OR 5V INDICATIONS: Cervicalgia TECHNIQUE: 5 views of the cervical spine were acquired. COMPARISON: None. FINDINGS: Bones: No fractures or dislocations to the T3 level. No suspicious bony lesions. There is normal range of motion between flexion and extension, with preserved normal bony alignment. Multilevel cervical spondylosis with mild degenerative endplate changes and endplate osteophytes. Soft tissues: Prevertebral soft tissues are normal in thickness. IMPRESSION: Cervical spine without acute fracture or malalignment. Multilevel cervical spondylosis. Normal range of motion with flexion and extension views. Dictated by: Jaylen Muro M.D. on 05/06/2021 at 8:54 Approved by: Jaylen Muro M.D. on 05/06/2021 at 8:56
== END ==
PROVIDERS: PCP Nurse Practitioner Family; Referring Provider Nurse Practitioner Family; Visit Provider Nurse Practitioner Family
DX: M54.2 Cervicalgia (principal); M47.812 Spondylosis without myelopathy or radiculopathy, cervical region
CPT/HCPCS: 72050

== ENCOUNTER 2021-12-14 20:01 | Emergency (ER) | payer OTHER, SELFPAY ==
[2018-10-17 15:00] VITALS: BMI 25.7
[2021-12-14] VITALS (9 sets, daily range): BP systolic 112–128; BP diastolic 58–71; PULSE 71–89; RESP 22; TEMP 36.4; O2SAT 94–99
--- NOTE | 2021-12-14 20:06 | DI.RAD.S_ITS ---
PROCEDURE: XR CHEST 2V INDICATIONS: shortness of breath TECHNIQUE: 2 views of the chest were acquired. COMPARISON: [facility], CR, XR CHEST 1V, 01/19/2020, 0:23. FINDINGS: Surgical changes and devices: None. Lungs and pleura: Lungs are clear. No pleural effusions or pneumothorax. Mediastinum: Mediastinal contours are normal. Heart size is normal. Bones and chest wall: No suspicious bony abnormalities. Soft tissues appear unremarkable. IMPRESSION: 1. No acute cardiopulmonary disease. Dictated by: Rodrigo Rainey M.D. on 12/14/2021 at 20:57 Approved by: Rodrigo Rainey M.D. on 12/14/2021 at 20:58
[2021-12-14 20:30] LABS: Add Manual Diff / Slide Review NO; Basophils Absolute Auto 100 /uL (0-100); Basophils Percent Auto 1.3 % (0-2); Eosinophils Absolute Auto 100 /uL (0-450); Hematocrit 39.1 % (36-46); Hemoglobin 13.5 g/dL (12.0-16.0); Lymphocytes Absolute Auto 2700 /uL (1100-4500); Lymphocytes Percent Auto 48.7 % (25-40); Mean Corpuscular HGB Conc 34.5 % (30-36); Mean Corpuscular Hemoglobin 30.7 PG (26-34); Monocytes Absolute Auto 500 /uL (0-900); Monocytes Percent Auto 8.3 % (3-14); Neutrophils Absolute Auto 2200 /uL (1500-7000); Neutrophils Percent Auto 39.7 % (50-75); Platelet Count 234 X10^3/uL (150-400); Red Blood Cell Count 4.39 X10^6/uL (4.0-5.2); Red Cell Distribution Width 13.2 % (11.6-14.8); White Blood Cell Count 5.4 X10^3/uL (4.5-11.0)
[2021-12-14 20:33] LABS: Alanine Aminotransferase 22 IU/L (<35); Albumin 4.8 g/dL (3.5-5.0); Albumin Globulin Ratio 1.3 (1.0-2.8); Alkaline Phosphatase 68 U/L (38-126); Aspartate Aminotransferase 33 IU/L (14-36); Bilirubin Total 0.5 mg/dL (0.2-1.3); Blood Urea Nitrogen 16 mg/dL (7-17); Calcium 10.8 mg/dL (8.4-10.2); Carbon Dioxide 26 mmol/L (22-32); Chloride 107 mmol/L (98-107); Estimated Glomerular Filt Rate > 60 mL/min (>60); Globulin 3.6 g/dL (1.7-4.1); Glucose 101 mg/dL (70-100); HEMOLYSIS < 15 (0-50); Sodium 143 mmol/L (137-145); Total Protein 8.4 g/dL (6.3-8.2)
--- NOTE | 2021-12-14 21:37 | ED.SOB ---
HPI - SOB/Dyspnea General Chief Complaint: Shortness of Breath/Dyspnea Stated Complaint: SOB Time Seen by Provider: 12/14/21 21:03 Source: patient and family Mode of arrival: Ambulatory History of Present Illness HPI Narrative: 56-year-old female nonsmoker with noncontributory medical history presents with family in the chief complaint of severe shortness of breath and cough. She has been having symptoms for the past few days and was seen at her primary care provider on Tuesday and had an evaluation including a chest x-ray which was consistent with bacterial pneumonia in the right lower lobe (per the patient). She was started on an antibiotic and was doing well until earlier today when she became increasingly short of breath with minimal exertion. She had frequent bronchospastic, dry cough and presents for evaluation. She has had fever as high as 103 over the course of the weekend. Related Data Home Medications Medication Instructions Recorded Confirmed ASPIRIN (Aspirin) #0 08/08/10 Previous Rx's Medication Instructions Recorded docusate sodium 100 mg capsule 100 mg PO BID #14 cap 10/18/18 (Colace) oxycodone 5 mg tablet 5 mg PO Q4HR PRN #30 tab 10/18/18 sennosides 8.6 mg tablet (Senokot) 8.6 mg PO BEDTIME #10 tab 10/18/18 Allergies Allergy/AdvReac Type Severity Reaction Status Date / Time azithromycin Allergy Verified 04/30/21 12:15 [From Zithromax Z-Brayden] Review of Systems Review of Systems Narrative: GENERAL: See HPI HEENT: Denies sinus pain, ear pain, sore throat, difficulty swallowing, dizziness. RESPIRATORY: See HPI CARDIOVASCULAR: Denies chest pain, palpitations, orthopnea, edema, GASTROINTESTINAL: Denies nausea, vomiting, abdominal pain, diarrhea, constipation, melena. : Denies dysuria, frequency, incontinence, hematuria, urinary retention. MUSCULOSKELETAL: denies weakness, joint pain, or bony pain SKIN: Denies rash, skin lesions, or other NEUROLOGIC: Denies weakness, headache, numbness, change in speech, confusion, seizures, incoordination. PSYCHIATRIC: No concerning psychosocial issues. 12 point review of systems is negative except for those stated above Patient History Medical History (Updated 12/15/21 @ 03:02 by Maurisio Fountain DO) History of bursitis No significant past medical history Surgical History History of section Family History Mother Hypertension Social History marital status: household members: spouse and children occupational status: employed Smoking Status: Never smoker alcohol intake: current Smoking Status: Never smoker alcohol intake frequency: a few times a week Substance Use Type: does not use Exam Narrative Exam Narrative: GENERAL: [56 year old patient appears stated age. Well-developed patient, in no obvious distress. Resting comfortably, reading in interacting with her daughter. HEAD: Atraumatic. Normocephalic. EYES: Pupils equal round and reactive. Extraocular motions intact. No scleral icterus. No injection or drainage. ENT: Nose without bleeding, purulent drainage. Throat without erythema, tonsillar hypertrophy or exudate. Airway patent. NECK: Trachea midline. Non tender CARDIOVASCULAR: Regular rate and rhythm without murmurs, gallops, or rubs. RESPIRATORY: Faint crackles in right base, otherwise no significant abnormal findings. Lung sounds are otherwise clear throughout and absent of wheezes, rales or rhonchi. On occasion deep breath does elicit a dry hacking cough. GASTROINTESTINAL: Abdomen soft, non-tender, nondistended. EXTREMITIES: No edema or joint tenderness. BACK: Nontender without deformity or crepitance. No flank tenderness. NEURO: AOx3. SKIN: No rash or erythema of visible areas Initial Vital Signs Initial Vital Signs: Vital Signs Temperature 97.5 F L 12/14/21 20:03 Pulse Rate 88 12/14/21 20:03 Respiratory Rate 22 12/14/21 20:03 Blood Pressure 124/71 12/14/21 20:03 Pulse Oximetry 99 12/14/21 20:03 Course Orders Ordered: ED Orders 12/14/21 20:06 XR chest 2V Stat EKG-12 Lead Stat Measure peak expiratory flow ONCE RT Consult Eval and Treat Now 12/14/21 20:14 BNP [NT-proBNP (BNP-Adult 18+)] Stat Complete Blood Count AUTO DIFF Stat Comprehensive Metabolic Panel Stat Lactate (Lactic Acid) Stat Procalcitonin Stat Prolactin Stat Troponin & CK Cardiac Panel Stat Discontinued Medications Albuterol (Albuterol Hfa Prepack) 1 box MISC SEEINSTR ONE Stop: 12/14/21 23:38 Last Admin: 12/14/21 23:44 Dose: 1 box Documented by: EV Albuterol/Ipratropium (Albuterol/Ipratropium 3 Ml Ampul) 3 ml INH NOW ONE Stop: 12/14/21 23:30 Last Admin: 12/14/21 23:44 Dose: Not Given Documented by: EV Vital Signs Vital signs: Vital Signs - 8 hr 12/14/21 20:03 12/14/21 21:20 12/14/21 21:22 Temperature 97.5 F L Pulse Rate 88 86 79 Respiratory Rate 22 Blood Pressure 124/71 128/60 Pulse Oximetry 99 95 97 12/14/21 21:30 12/14/21 22:00 12/14/21 22:30 Temperature Pulse Rate 73 79 89 Respiratory Rate Blood Pressure 112/58 L 114/65 Pulse Oximetry 98 94 98 12/14/21 22:31 12/14/21 23:02 12/14/21 23:30 Temperature Pulse Rate 77 71 77 Respiratory Rate Blood Pressure 117/71 Pulse Oximetry 98 97 98 12/15/21 00:02 12/15/21 00:08 12/15/21 00:12 Temperature Pulse Rate 73 81 Respiratory Rate Blood Pressure 114/66 Pulse Oximetry 97 95 95 MDM - SOB/Dyspnea Lab Data Result diagrams: 12/14/21 20:14 12/14/21 20:14 Labs: Lab Results 12/14/21 12/14/21 12/14/21 Range/Units 20:14 20:14 20:14 WBC 5.4 (4.5-11.0) X10^3/uL RBC 4.39 (4.0-5.2) X10^6/uL Hgb 13.5 (12.0-16.0) g/dL Hct 39.1 (36-46) % MCV 89.0 (80-100) fL MCH 30.7 (26-34) PG MCHC 34.5 (30-36) % RDW 13.2 (11.6-14.8) % Plt Count 234 (150-400) X10^3/uL Neut % (Auto) 39.7 L (50-75) % Lymph % (Auto) 48.7 H (25-40) % [place] % (Auto) 8.3 (3-14) % Eos % (Auto) 2.0 (2-4) % Baso % (Auto) 1.3 (0-2) % Neut # (Auto) 2200 (1534-8960) /uL Lymph # (Auto) 2700 (2686-8753) /uL [place]uel # (Auto) 500 (0-900) /uL Eos # (Auto) 100 (0-450) /uL Baso # (Auto) 100 (0-100) /uL Sodium 143 (137-145) mmol/L Potassium 4.0 (3.4-5.1) mmol/L Chloride 107 (98-107) mmol/L Carbon Dioxide 26 (22-32) mmol/L BUN 16 (7-17) mg/dL Creatinine 0.80 (0.52-1.04) mg/dL Estimated GFR > 60 (>60) mL/min BUN/Creatinine Ratio 20.0 (6-22) Glucose 101 H (70-100) mg/dL Lactate 1.0 (0.7-2.1) mmol/L Calcium 10.8 H (8.4-10.2) mg/dL Total Bilirubin 0.5 (0.2-1.3) mg/dL AST 33 (14-36) IU/L ALT 22 (<35) IU/L Alkaline Phosphatase 68 (38-126) U/L Total Creatine Kinase (30-135) U/L CK-MB (CK-2) CK-MB (CK-2) Rel Index Troponin I (0.01-0.034) ng/mL NT-Pro-B Natriuret Pep (<125) pg/mL Total Protein 8.4 H (6.3-8.2) g/dL Albumin 4.8 (3.5-5.0) g/dL Globulin 3.6 (1.7-4.1) g/dL Albumin/Globulin Ratio 1.3 (1.0-2.8) Procalcitonin (<0.5) ng/mL Prolactin (3.0-18.6) ng/mL 12/14/21 12/14/21 Range/Units 20:14 20:14 WBC (4.5-11.0) X10^3/uL RBC (4.0-5.2) X10^6/uL Hgb (12.0-16.0) g/dL Hct (36-46) % MCV (80-100) fL MCH (26-34) PG MCHC (30-36) % RDW (11.6-14.8) % Plt Count (150-400) X10^3/uL Neut % (Auto) (50-75) % Lymph % (Auto) (25-40) % Deuel % (Auto) (3-14) % Eos % (Auto) (2-4) % Baso % (Auto) (0-2) % Neut # (Auto) (2756-2473) /uL Lymph # (Auto) (0388-5892) /uL Deuel # (Auto) (0-900) /uL Eos # (Auto) (0-450) /uL Baso # (Auto) (0-100) /uL Sodium (137-145) mmol/L Potassium (3.4-5.1) mmol/L Chloride (98-107) mmol/L Carbon Dioxide (22-32) mmol/L BUN (7-17) mg/dL Creatinine (0.52-1.04) mg/dL Estimated GFR (>60) mL/min BUN/Creatinine Ratio (6-22) Glucose (70-100) mg/dL Lactate (0.7-2.1) mmol/L Calcium (8.4-10.2) mg/dL Total Bilirubin (0.2-1.3) mg/dL AST (14-36) IU/L ALT (<35) IU/L Alkaline Phosphatase (38-126) U/L Total Creatine Kinase 76 (30-135) U/L CK-MB (CK-2) TNP CK-MB (CK-2) Rel Index TNP Troponin I < 0.012 (0.01-0.034) ng/mL NT-Pro-B Natriuret Pep 46 (<125) pg/mL Total Protein (6.3-8.2) g/dL Albumin (3.5-5.0) g/dL Globulin (1.7-4.1) g/dL Albumin/Globulin Ratio (1.0-2.8) Procalcitonin 0.04 (<0.5) ng/mL Prolactin 42.6 H (3.0-18.6) ng/mL Imaging Data Chest x-ray: Radiologist's Impression: Launch?Image [address] [address] XRay Report Signed Patient: Susanna Christopher MR#: [id number] : 1965 Acct:[id number] Age/Sex: 56 / F Date of Service: 12/14/21 Loc: ED Accession Number: [id number] ?? Procedure: XR chest 2V Ordering Provider: Maurisio Fountain D.O. PROCEDURE:? XR CHEST 2V ? INDICATIONS:? shortness of breath ? TECHNIQUE:? 2 views of the chest were acquired.? ? COMPARISON:? [facility], CR, XR CHEST 1V, 01/19/2020, 0:23. ? FINDINGS:? ? Surgical changes and devices:? None.? ? Lungs and pleura:? Lungs are clear.? No pleural effusions or pneumothorax.? ? Mediastinum:? Mediastinal contours are normal.? Heart size is normal.? ? Bones and chest wall:? No suspicious bony abnormalities.? Soft tissues appear unremarkable.? ? IMPRESSION:? ? 1.? No acute cardiopulmonary disease. ? ? ? Dictated by: Rodrigo Rainey M.D. on 12/14/2021 at 20:57 ? ? Approved by: Rodrigo Rainey M.D. on 12/14/2021 at 20:58 ? [facility] Narrative Medical decision making narrative: Patient with very reassuring history and physical exam presents with family and recent diagnosis of right lower lobe pneumonia. There was an episode of significant shortness of breath earlier today that resolved prior to arrival. No evidence of significant respiratory distress such as use of accessory muscles, tachypnea or hypoxemia. Reassuring physical exam and very minimal crackles noted in right base. Chest x-ray demonstrates no sign of pneumonia. Patient has stable vital signs, no elevated white blood cell count and normal procalcitonin. Bacterial pneumonia possible but questionable. She does have a dry, bronchospastic element to her exam and complaint, bronchodilators ordered, however per hospital policy COVID swab must be obtained 1st and despite discussion patient refused. Heart failure and myocardial infarction or considered but thought unlikely given history, physical exam and lab work. Pulmonary embolism considered but thought unlikely given lack of pain, tachycardia, persistent shortness of breath or hypoxemia. Patient was feeling much better and elected to leave prior to final discharge from [facility], however she was able to speak with nursing staff and had no further questions. Discharge Plan Departure Patient Disposition: Home Clinical Impression: Acute bronchospasm, Acute dyspnea, Pneumonia Prescriptions: No Action ASPIRIN (Aspirin) Qty: 0 0RF oxycodone 5 mg Tablet 5 mg PO Q4HR PRN (Reason: Pain, Moderate (4-6)) Qty: 30 0RF sennosides [Senokot] 8.6 mg tablet 8.6 mg PO BEDTIME Qty: 10 1RF docusate sodium [Colace] 100 mg capsule 100 mg PO BID Qty: 14 1RF Referrals: Teresa Curiel ARNP [Primary Care Provider] -
[2021-12-14 21:51] LABS: Creatine Kinase 76 U/L (30-135)
[2021-12-14 22:04] LABS: NT-proBNP (BNP-Adult 18+) 46 pg/mL (<125); Troponin I < 0.012 ng/mL (0.01-0.034)
[2021-12-14 22:36] LABS: Prolactin 42.6 ng/mL (3.0-18.6)
[2021-12-14 23:29] LABS: Procalcitonin 0.04 ng/mL (<0.5)
[2021-12-14] MEDS: ALBUTEROL HFA PREPACK 1 BOX MISC (23:44)
[2021-12-15 00:02] VITALS: PULSE 73; O2SAT 97
--- NOTE | 2021-12-15 00:06 | RT ---
instuct on MDI DONE . pt took 1 puff. and that was all she would do . she is awake and alert no distress at this time . IS instruct also done .
[2021-12-15 00:08] VITALS: BP 114/66; PULSE 81; O2SAT 95
[2021-12-15 00:12] VITALS: O2SAT 95
== END 2021-12-15 00:28 | disposition home or self-care (01) ==
PROVIDERS: Emergency Provider Emergency Medicine; PCP Nurse Practitioner Family
DX: J98.01 Acute bronchospasm (principal); R06.00 Dyspnea, unspecified; J18.9 Pneumonia, unspecified organism
CPT/HCPCS: 36415; 71046; 80053; 82550; 83605; 83880; 84145; 84146; 84484; 85025; 93005; 93010; 94640; 99284

== ENCOUNTER 2023-07-29 15:21 | Day surgery (SDC) | payer OTHER, SELFPAY ==
[2018-10-17 15:00] VITALS: BMI 25.7
[2023-07-28 10:42] VITALS: BMI 25.3
--- NOTE | 2023-07-28 17:39 | PM.PREOP ---
Pre-operative Note Interval Note History & Physical reviewed/Exam performed by Physician: Yes Changes to H&P: No
[2023-07-29] MEDS: LACTATED RINGERS 1,000 ML 21 ML IV (15:40)
[2023-07-29] MEDS: ACETAMINOPHEN 325 MG TABLET 975 MG PO (15:50)
[2023-07-29 15:57] VITALS: BP 126/82; PULSE 103; RESP 18; TEMP 36.8; O2SAT 99; BMI 25.0
--- NOTE | 2023-07-29 16:28 | PM.PREOP ---
Pre-operative Note Interval Note History & Physical reviewed/Exam performed by Physician: Yes Changes to H&P: No
--- NOTE | 2023-07-29 16:46 | SUR.OPER ---
Supine on padded OR bed, head on pillow, arms secured on padded arm boards at <90 degrees abduction, legs uncrossed, safety belt at thigh, tape over blanket over lower legs.
[2023-07-29] MEDS: BUPIVACAINE 0.25% (PF) VIAL 30 ML INJ (16:52)
[2023-07-29 17:16] VITALS: BP 109/61; PULSE 82; RESP 16; TEMP 37.2; O2SAT 97
[2023-07-29] MEDS: KETOROLAC 30 MG/ML VIAL IV (17:20)
[2023-07-29 17:31] VITALS: BP 106/67; PULSE 77; RESP 12; O2SAT 96
[2023-07-29 17:45] VITALS: BP 106/65; PULSE 79; RESP 14; TEMP 37.2; O2SAT 100
[2023-07-29] MEDS: ONDANSETRON 4 MG/2 ML INJ IV (17:59)
--- NOTE | 2023-07-29 18:27 | PM.OP.1 ---
Operative Date/Time/Diagnoses Date of procedure: 07/29/23 Time of procedure: 18:27 Pre-op diagnosis: Chest wall abscess Post-op diagnosis: same Procedure & Clinicians Procedure: Incision and drainage of chest wall abscess Same procedure as scheduled: Yes Indications: Painful enlarging chest wall abscess Surgeon: Matthew Mast Operative Notes Findings: Consistent with a infected sebaceous cyst Specimen(s): other (Chest wall abscess) Estimated Blood Loss (mL): 1 Procedure in detail: Patient was brought to the operating room placed supine on the table. Bilateral lower extremity compression devices were applied. Mild sedation was induced by anesthesia she was prepped and draped in sterile fashion time-out performed. An incision was made over the abscess which is located overlying the sternum with a knife over the area of maximal fluctuance. Large amount of purulent material was expressed and sent for wound culture. The content was consistent with an infected sebaceous cyst. The sac of the cyst was excised. The wound was thoroughly irrigated hemostasis was achieved. Half-inch iodoform dressing was packed into the wound and then the wound edges were reapproximated using nylon suture. She tolerated the procedure well was transferred to recovery in stable condition. Complications: none Post-operative Condition: stable Disposition: same day surgery
== END 2023-07-29 18:00 | disposition home or self-care (01) ==
PROVIDERS: PCP Nurse Practitioner Family; Referring Provider Surgery; Visit Provider Surgery
PROC: (CPT 11406; principal; 2023-07-29 16:15)
DX: L02.213 Cutaneous abscess of chest wall (principal); R20.8 Other disturbances of skin sensation
CPT/HCPCS: 11406; 87070; 87075; 87185; 87205; J1100; J1885; J2250; J2405; J2704; J3010